=== PATIENT | male | born 1945 | race Caucasian/White ===

== ENCOUNTER 2018-01-17 10:56 | Inpatient (IN) | payer MEDICARE, OTHER ==
--- NOTE | 2018-01-17 11:06 | ER Document Report ---
ED Medical Screen (RME) - General Chief Complaint: Breathing Difficulty Stated Complaint: DIFFICULTY BREATHING,BACK PAIN TRAVEL OUTSIDE OF THE [place] IN LAST 30 DAYS: No - HPI Notes: 01/17/18 11:05 Short of breath acute exacerbation of chronic back pain - Related Data Allergies/Adverse Reactions: No Known Allergies Allergy (Verified 01/17/18 11:03) Past Medical History - Past Medical History Cardiac Medical History: Reports: Hx Hypertension Endocrine Medical History: Reports: Hx Diabetes Mellitus Type 2 Review of Systems - Review of Systems Respiratory: Short of breath Musculoskeletal: Back pain Physical Exam - Vital signs Vitals: Temp Pulse Resp BP Pulse Ox 98.1 F 83 20 184/63 H 94 01/17/18 11:01 01/17/18 11:01 01/17/18 11:01 01/17/18 11:01 01/17/18 11:01 - Respiratory Respiratory status: No respiratory distress Chest status: Nontender Breath sounds: Normal Chest palpation: Normal Course - Vital Signs Vital signs: Temp Pulse Resp BP Pulse Ox 98.1 F 83 20 184/63 H 94 01/17/18 11:01 01/17/18 11:01 01/17/18 11:01 01/17/18 11:01 01/17/18 11:01
[2018-01-17 11:37] LABS: ABSOLUTE BASOPHILS # (AUTO) 0.1 10^3/uL (0.0-0.2); ABSOLUTE EOSINOPHILS # (AUTO) 0.2 10^3/uL (0.0-0.6); ABSOLUTE LYMPHOCYTES (AUTO) 1.6 10^3/uL (0.5-4.7); ABSOLUTE MONOCYTES (AUTO) 0.6 10^3/uL (0.1-1.4); ABSOLUTE NEUT (AUTO) 7.2 10^3/uL (1.7-8.2); BASOPHILS % (AUTO) 0.8 % (0-2); HEMATOCRIT 45.5 % (37.9-51.0); HEMOGLOBIN 15.3 g/dL (13.5-17.0); LYMPHOCYTES % (AUTO) 16.3 % (13-45); MEAN CORPUSCULAR HEMOGLOBIN 29.5 pg (27.0-33.4); MEAN CORPUSCULAR HGB CONC 33.7 g/dL (32.0-36.0); MEAN CORPUSCULAR VOLUME 88 fl (80-97); MONOCYTES % (AUTO) 6.5 % (3-13); PLATELET COUNT 236 10^3/uL (150-450); RED BLOOD COUNT 5.19 10^6/uL (4.35-5.55); RED CELL DISTRIBUTION WIDTH 14.1 % (11.5-14.0); SEGMENTED NEUTROPHILS % (AUTO) 74.4 % (42-78); TOTAL CELLS COUNTED % (AUTO) 100 %; WHITE BLOOD COUNT 9.6 10^3/uL (4.0-10.5)
[2018-01-17 11:59] LABS: ALANINE AMINOTRANSFERASE 64 U/L (21-72); ALBUMIN 3.5 g/dL (3.5-5.0); ALKALINE PHOSPHATASE 66 U/L (38-126); ANION GAP 6 (5-19); ASPARTATE AMINO TRANSFERASE 35 U/L (17-59); BILIRUBIN,DIRECT 0.6 mg/dL (0.0-0.4); BILIRUBIN,TOTAL 0.8 mg/dL (0.2-1.3); BLOOD UREA NITROGEN 19 mg/dL (7-20); CALCIUM 8.8 mg/dL (8.4-10.2); CARBON DIOXIDE 28 mmol/L (22-30); CHLORIDE 105 mmol/L (98-107); CREATINE KINASE 95 U/L (55-170); GLUCOSE 120 mg/dL (75-110); POTASSIUM 4.7 mmol/L (3.6-5.0); SODIUM 139.3 mmol/L (137-145); TOTAL PROTEIN 6.6 g/dL (6.3-8.2)
--- NOTE | 2018-01-17 12:06 | RADIOLOGY REPORT (SQ) ---
EXAM DESCRIPTION: CHEST 2 VIEWS COMPLETED DATE/TIME: 01/17/2018 11:43 am REASON FOR STUDY: sob COMPARISON: Two-view chest 07/18/2015 EXAM PARAMETERS: NUMBER OF VIEWS: two views TECHNIQUE: Digital Frontal and Lateral radiographic views of the chest acquired. RADIATION DOSE: NA LIMITATIONS: none FINDINGS: LUNGS AND PLEURA: Trace bilateral pleural effusions in the posterior costophrenic sulci. Few Ayo lines at both bases likely indicating mild interstitial edema. No dense consolidation worrisome for pneumonia. No pneumothorax. MEDIASTINUM AND HILAR STRUCTURES: No masses or contour abnormalities. HEART AND VASCULAR STRUCTURES: No cardiomegaly BONES: No acute findings. HARDWARE: Lap band prosthesis at the GE junction OTHER: No other significant finding. IMPRESSION: Trace bilateral pleural effusions Mild interstitial edema TECHNICAL DOCUMENTATION: JOB ID: [id number] [employer]- All Rights Reserved Reading location - IP/workstation name: [email or web address]
[2018-01-17 12:10] LABS: CREATINE KINASE MB 4.16 ng/mL (<4.55)
[2018-01-17 12:15] LABS: TROPONIN I 0.184 ng/mL
[2018-01-17] MEDS ORDERED: ASPIRIN 325 MG TABLET PO ONE (12:18)
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
[2018-01-17] MEDS ORDERED: FUROSEMIDE INJ/PF 40 MG/4 ML SDV IV ONE (12:30)
[2018-01-17] MEDS ORDERED: OXYCODONE-ACETAMINOPHEN 5-325 MG TABLET PO PRN (16:58)
[2018-01-17] MEDS ORDERED: ALBUTEROL SULFATE 0.083% NEB 2.5 MG/3 ML AMPUL NEB PRN (16:58)
[2018-01-17] MEDS ORDERED: ONDANSETRON HCL INJ/PF 4 MG/2 ML SDV IV PRN (16:58)
[2018-01-17] MEDS ORDERED: ACETAMINOPHEN 325 MG TABLET PO PRN (16:58)
[2018-01-17] MEDS ORDERED: NITROGLYCERIN 0.4 MG/TAB 25 TAB/BOTTLE SL PRN (17:08)
[2018-01-17] MEDS ORDERED: NITROGLYCERIN 2% OINTMENT 1 GM PACKET TP SCH (18:00)
--- NOTE | 2018-01-17 18:07 | EKG REPORT ---
SEVERITY:- ABNORMAL ECG - SINUS RHYTHM LVH WITH SECONDARY REPOLARIZATION ABNORMALITY PROBABLE INFERIOR INFARCT, OLD BORDERLINE PROLONGED QT INTERVAL : Confirmed by: Shagufta Limon MD 17-Jan-2018 18:06:25
--- NOTE | 2018-01-17 18:07 | EKG REPORT ---
SEVERITY:- ABNORMAL ECG - SINUS RHYTHM LAD, LAFB ABNORMAL T, CONSIDER ISCHEMIA, LATERAL LEADS : Confirmed by: Shagufta Limon MD 17-Jan-2018 18:07:02
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
[2018-01-17] MEDS ORDERED: METOPROLOL TARTRATE 100 MG TABLET PO SCH (22:00)
[2018-01-17] MEDS: INSULIN GLARGINE,HUM.REC.ANLOG 300 UNIT/3 ML INSULN.PEN SUBCUT SCH (22:23)
[2018-01-17] MEDS: FUROSEMIDE INJ/PF 40 MG/4 ML SDV IV SCH (22:25)
[2018-01-17] MEDS: METOPROLOL TARTRATE 100 MG TABLET PO SCH (22:25)
[2018-01-17] MEDS: ENOXAPARIN SODIUM INJ 100 MG/1 ML DISP.SYRIN SUBCUT SCH (22:25)
[2018-01-17] MEDS: BUPROPION HCL 75 MG TABLET PO SCH (22:26)
[2018-01-17] MEDS: ATORVASTATIN CALCIUM 20 MG TABLET PO SCH (22:26)
[2018-01-17] MEDS: FAMOTIDINE 20 MG TABLET PO SCH (22:26)
[2018-01-18] MEDS: NITROGLYCERIN 2% OINTMENT 1 GM PACKET TP SCH ×5 (00:32→23:46)
[2018-01-18 00:54] LABS: APPEARANCE,URINE CLEAR; BILIRUBIN,URINE NEGATIVE (NEGATIVE); COLOR,URINE STRAW; KETONES,URINE 25 mg/dL (NEGATIVE); LEUKOCYTE ESTERASE,URINE NEGATIVE (NEGATIVE); NITRITE,URINE NEGATIVE (NEGATIVE); PROTEIN,URINE NEGATIVE (NEGATIVE); UROBILINOGEN,URINE NEGATIVE mg/dL (<2.0)
[2018-01-18 01:08] LABS: GLUCOSE, URINE >=1000 mg/dL (NEGATIVE)
[2018-01-18 01:09] LABS: URINE SPECIFIC GRAVITY 1.016
[2018-01-18 05:25] LABS: HEMATOCRIT 43.6 % (37.9-51.0); HEMOGLOBIN 14.6 g/dL (13.5-17.0); MEAN CORPUSCULAR HGB CONC 33.4 g/dL (32.0-36.0); MEAN CORPUSCULAR VOLUME 87 fl (80-97); PLATELET COUNT 210 10^3/uL (150-450); RED BLOOD COUNT 5.03 10^6/uL (4.35-5.55); RED CELL DISTRIBUTION WIDTH 14.1 % (11.5-14.0); WHITE BLOOD COUNT 9.5 10^3/uL (4.0-10.5)
[2018-01-18 06:00] LABS: ANION GAP 8 (5-19); BLOOD UREA NITROGEN 21 mg/dL (7-20); CALCIUM 8.8 mg/dL (8.4-10.2); CARBON DIOXIDE 29 mmol/L (22-30); CHLORIDE 104 mmol/L (98-107); GLUCOSE 87 mg/dL (75-110); POTASSIUM 4.4 mmol/L (3.6-5.0); SODIUM 140.5 mmol/L (137-145)
[2018-01-18 06:01] LABS: CHOLESTEROL 142.57 mg/dL (0-200); TRIGLYCERIDES 82 mg/dL (<150)
[2018-01-18 06:11] LABS: DIRECT LDL 80 mg/dL (<100)
--- NOTE | 2018-01-18 08:15 | EKG REPORT ---
SEVERITY:- ABNORMAL ECG - SINUS RHYTHM PROBABLE INFERIOR INFARCT, OLD MINIMAL ST ELEVATION, ANTERIOR LEADS : Confirmed by: Shagufta Limon MD 18-Jan-2018 08:14:24
[2018-01-18] MEDS ORDERED: DEXTROSE 50%-WATER SYRINGE 25 GM/50 ML DOSE IV PRN (09:24)
[2018-01-18] MEDS ORDERED: DEXTROSE 50%-WATER SYRINGE 12.5 GM/25 ML DOSE IV PRN (09:24)
[2018-01-18] MEDS ORDERED: DEXTROSE 40% GEL 15 GM TUBE X 2 PO PRN (09:24)
[2018-01-18] MEDS ORDERED: INSULIN LISPRO 100 UNIT/ML 3 ML VIAL SUBCUT PRN (09:24)
[2018-01-18] MEDS ORDERED: GLUCAGON,HUMAN RECOMB 1 MG INJ IM PRN (09:24)
[2018-01-18] MEDS ORDERED: DEXTROSE 40% GEL 15 GM TUBE PO PRN (09:24)
[2018-01-18] MEDS: BUPROPION HCL 75 MG TABLET PO SCH ×2 (09:53→21:29)
[2018-01-18] MEDS: FAMOTIDINE 20 MG TABLET PO SCH ×2 (09:53→21:31)
[2018-01-18] MEDS: DOXAZOSIN MESYLATE 2 MG TABLET PO SCH (09:54)
[2018-01-18] MEDS: DOCUSATE SODIUM 100 MG CAPSULE PO SCH (09:54)
[2018-01-18] MEDS: ENOXAPARIN SODIUM INJ 100 MG/1 ML DISP.SYRIN SUBCUT SCH ×2 (09:54→21:31)
[2018-01-18] MEDS ORDERED: METRONIDAZOLE TP SCH (10:00)
[2018-01-18] MEDS ORDERED: (PENDING PHARMACY ID) (Empagliflozin [Jardiance] 25 MG) PO SCH (10:00)
[2018-01-18] MEDS: FUROSEMIDE INJ/PF 40 MG/4 ML SDV IV SCH ×2 (10:02→21:31)
[2018-01-18] MEDS: METOPROLOL TARTRATE 100 MG TABLET PO SCH ×2 (10:20→21:30)
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
--- NOTE | 2018-01-18 17:51 | XCELERA REPORT ---
[address] [address] Transthoracic Echocardiogram Report Name: DK WOLFE Age: 72 yrs Gender: Male : 1945 Patient Status: Inpatient Patient Location: [address] [place] [address] Study Date: 01/18/2018 02:23 PM Height: 66 in Weight: 252 lb BSA: 2.2 m2 Procedure: A complete two-dimensional transthoracic echocardiogram was performed (2D, M-mode, spectral and color flow Doppler). The study was technically difficult with many images being suboptimal in quality. Reason For Study: CHF Ordering Physician: BRENTON PENA Performed By: Joy Johnston Interpretation Summary Left ventricular systolic function is low normal. There is mild concentric left ventricular hypertrophy. The left ventricle is grossly normal size. Doppler measurements suggest pseudonormalized left ventricular relaxation, which is associated with grade II/IV or mild to moderate diastolic dysfunction Regional wall motion abnormalities cannot be excluded due to limited visualization. The right ventricle is grossly normal size. The right ventricular systolic function is normal. The right atrium is normal in size The left atrium is mildly dilated. There is a trace amount of mitral regurgitation There is no mitral valve stenosis. There is no aortic valve stenosis There is a mild amount of aortic regurgitation There is a trace or physiologic amount of tricuspid regurgitation Tricuspid regurgitation jet envelope not well defined to measure RV systolic pressure accurately. The aortic root is not well visualized but is probably normal size. The inferior vena cava appeared normal and decreased > 50% with respiration (RAP 5-10 mmHg) Minimal pericardial effusion. MMode/2D Measurements & Calculations RVDd: 3.1 cm LVIDd: 5.0 cm FS: 30.8 % Ao root diam: 3.3 cm IVSd: 1.0 cm LVIDs: 3.5 cm EDV(Teich): 119.0 ml Ao root area: 8.7 cm2 LVPWd: 1.0 cm ESV(Teich): 49.9 ml LA dimension: 4.2 cm EF(Teich): 58.1 % Doppler Measurements & Calculations MV E max markus: MV P1/2t max markus: Ao V2 max: AI max markus: 118.0 cm/sec 118.5 cm/sec 100.4 cm/sec 367.0 cm/sec MV A max markus: MV P1/2t: 78.3 msec Ao max PG: AI max P.3 cm/sec MVA(P1/2t): 2.8 cm2 4.0 mmHg 53.9 mmHg MV E/A: 0.91 MV dec slope: AI dec slope: 252.2 cm/sec2 443.0 cm/sec2 AI P1/2t: MV dec time: 0.27 sec 426.3 msec LV V1 max PG: PA V2 max: TR max markus: AV P1/2t-pr_phl: 3.9 mmHg 70.1 cm/sec 205.0 cm/sec 426.3 msec LV V1 max: PA max P.0 mmHg TR max P.2 cm/sec 16.8 mmHg MV P1/2t-pr_phl: 78.3 msec Left Ventricle The left ventricle is grossly normal size. There is mild concentric left ventricular hypertrophy. Left ventricular systolic function is low normal. Doppler measurements suggest pseudonormalized left ventricular relaxation, which is associated with grade II/IV or mild to moderate diastolic dysfunction. Regional wall motion abnormalities cannot be excluded due to limited visualization. Right Ventricle The right ventricle is grossly normal size. There is normal right ventricular wall thickness. The right ventricular systolic function is normal. Atria The right atrium is normal in size. The left atrium is mildly dilated. Interarterial septum not well visualized and not well dopplered. Cannot comment on ASD/PFO presence. Mitral Valve There is mild mitral leaflet calcification. There is mild to moderate mitral annular calcification. There is no mitral valve stenosis. There is a trace amount of mitral regurgitation. Aortic Valve The aortic valve is not well visualized secondary to technical limitations. There is no aortic valve stenosis. There is a mild amount of aortic regurgitation. Tricuspid Valve The tricuspid valve is not well visualized secondary to technical limitations. There is no tricuspid stenosis. There is a trace or physiologic amount of tricuspid regurgitation. Tricuspid regurgitation jet envelope not well defined to measure RV systolic pressure accurately. Pulmonic Valve The pulmonic valve is not well visualized. Great Vessels The aortic root is not well visualized but is probably normal size. The inferior vena cava appeared normal and decreased > 50% with respiration (RAP 5-10 mmHg). Effusions Minimal pericardial effusion. : BRENTON PENA > Karl Lai
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
[2018-01-18] MEDS: ATORVASTATIN CALCIUM 20 MG TABLET PO SCH (21:29)
[2018-01-18] MEDS: INSULIN GLARGINE,HUM.REC.ANLOG 300 UNIT/3 ML INSULN.PEN SUBCUT SCH (21:32)
[2018-01-19 04:52] LABS: HEMATOCRIT 43.1 % (37.9-51.0); HEMOGLOBIN 14.8 g/dL (13.5-17.0); MEAN CORPUSCULAR HEMOGLOBIN 29.5 pg (27.0-33.4); MEAN CORPUSCULAR HGB CONC 34.2 g/dL (32.0-36.0); MEAN CORPUSCULAR VOLUME 86 fl (80-97); PLATELET COUNT 232 10^3/uL (150-450); WHITE BLOOD COUNT 9.4 10^3/uL (4.0-10.5)
[2018-01-19] MEDS: NITROGLYCERIN 2% OINTMENT 1 GM PACKET TP SCH ×4 (05:37→23:41)
[2018-01-19] MEDS: DOCUSATE SODIUM 100 MG CAPSULE PO SCH (11:28)
[2018-01-19] MEDS: FAMOTIDINE 20 MG TABLET PO SCH ×2 (11:28→21:38)
[2018-01-19] MEDS: DOXAZOSIN MESYLATE 2 MG TABLET PO SCH (11:29)
[2018-01-19] MEDS: FUROSEMIDE INJ/PF 40 MG/4 ML SDV IV SCH (11:29)
[2018-01-19] MEDS: BUPROPION HCL 75 MG TABLET PO SCH ×2 (11:29→21:39)
[2018-01-19] MEDS: METOPROLOL TARTRATE 100 MG TABLET PO SCH (11:30)
[2018-01-19] MEDS: ENOXAPARIN SODIUM INJ 100 MG/1 ML DISP.SYRIN SUBCUT SCH (11:30)
[2018-01-19] MEDS ORDERED: REGADENOSON INJ 0.4 MG/5 ML DISP.SYRIN IV ONE (11:43)
--- NOTE | 2018-01-19 12:06 | DRAGON STRESS TEST REPORT ---
INTRAVENOUS LEXISCAN CARDIOLITE STRESS TEST USING SINGLE PHOTON EMMISION COMPUTERIZED TOMOGRAPHIC. DATE OF PROCEDURE: January 19, 2018, INDICATION : Abnormal troponin, CHF CARDIAC RISK FACTORS: Diabetes, hypertension, dyslipidemia RESTING EKG: Sinus rhythm, LVH with secondary ST-T wave changes, left axis deviation STRESS EKG: No significant ST segment changes noted with LexiScan bolus REASON FOR TERMINATION: Protocol. PROCEDURE REPORT: Baseline heart rate 68 beats per minute with blood pressure of 138/50. Patient had no significant complaints. Patient was bolused with Lexiscan 0.4 mg intravenously followed by saline bolus. Heart rate at 2 minutes post bolus 75 with a blood pressure of 140/54. 3 minutes post bolus heart rate 76 with blood pressure of 149/58. No significant EKG changes were noted. Patient had no significant complaints during the procedure or postprocedure. CONCLUSIONS: Normal EKG and hemodynamic response to IV LexiScan. NUCLEAR DATA: At rest the patient was given 15.01 millicuries of technetium 99 sestamibi injected intravenously. As per protocol rest gated SPECT images were obtained. On day of stress test, the patient was given intravenous LexiScan at a dose of 0.4 mg in 5 mL intravenously, followed by flush with normal saline. Subsequently the stress dose of 40.5 millicuries of technetium 99 sestamibi was injected intravenously. As per protocol stress gated images were obtained. NUCLEAR INTERPRETATION: Both raw and processed data were used for interpretation. Visual, qualitative, computer-generated quantitative data was used. There was good myocardial uptake of technetium compound. Motion artifact and soft tissue attenuations were noted. Increased visceral uptake was noted. Predominantly moderate fixed defect noted in the basal and mid inferior wall with minimal area of surrounding transient perfusion defect, consistent with predominantly scar with small area of surrounding ischemia involving the mid and basal inferior wall. EKG gated imaging showed LV EF at 38 %, rest and stress gated EF similar visually. Inferior wall hypokinesia noted. T. I D. ratio was 1.16. Lung heart ratio noted to be within normal limits 0.38. No significant extracardiac and abnormal radiotracer activities were noted. RV free wall uptake was noted to be Increased. IMPRESSION: Also refer to comments under nuclear interpretation. Also test results needs to be interpreted in the context of pretest probability. 1. Predominantly moderate fixed defect noted in the basal and mid inferior wall with minimal area of surrounding transient perfusion defect, consistent with predominantly scar with small area of surrounding ischemia involving the mid and basal inferior wall. 2. RV free wall uptake seems borderline increased. Possible borderline to mild RVH. 3. EKG gated imaging shows left ventricular ejection fraction of approx. 38 %. Inferior wall hypokinesia noted. 4. Clinical correlation requested as worse disease and or balanced ischemia could be missed. In approximately 10% of the cases Lexiscan may not cause adequate vasodilatory stress. RECOMMENDATIONS: Aggressive risk factor modification and medical management. Further evaluation may be needed if continued symptoms or other high risk indicators are noted on clinical evaluation. Close cardiology follow-up is also recommended. Clinical correlation with echocardiogram derived ejection fraction. Inability to exercise by itself can lead to increased cardiovascular event risks. Consider cardiology consultation and or follow-up if clinically indicated. I am available for cardiology evaluation and consultation if requested by the shear operator helper, unless patient already has a folder gluer operator. Dr. Fabien Lai. MRCP Board certified in cardiology and sleep medicine. Board certified in nuclear cardiology, adult echocardiography. GERMÁN
[2018-01-19] MEDS ORDERED: ONDANSETRON HCL INJ/PF 4 MG/2 ML SDV IV PRN (14:30)
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
--- NOTE | 2018-01-19 19:40 | PDOC PROGRESS REPORT ---
Subjective Progress Note for:: 01/19/18 Subjective:: Patient seems to be doing better with gradual improvement. Pt is denying any chest arm or neck discomfort. Patient denying any PND, orthopnea. Patient denied any sustained palpitations, dizziness, syncope, near syncope. Patient denying any fever chills. Patient denying any other significant discomfort. Patient is maintaining sinus rhythm. Review of systems: Rest review of systems negative. Medications: Medications have been reviewed. Reason For Visit: CHF DECOMPENSATION,ACUTE NSTEMI Physical Exam Vital Signs: Temp Pulse Resp BP Pulse Ox 98.1 F 63 18 117/47 L 95 01/19/18 15:05 01/19/18 15:05 01/19/18 15:05 01/19/18 15:05 01/19/18 15:05 Intake & Output 01/18/18 01/19/18 01/20/18 06:59 06:59 06:59 Intake Total 300 1349 725 Output Total 2150 2050 Balance -1850 -701 725 Weight 112.8 kg 111.2 kg Exam: GENERAL: well-nourished and in no acute distress. Alert and oriented x3 HEAD: Atraumatic, normocephalic. EYES: Pupils equal round and reactive to light, extraocular movements intact, sclera anicteric, conjunctiva are normal. ENT: TMs normal, nares patent, oropharynx clear without exudates. Moist mucous membranes. No oral ulcerations or bleeding gums noted NECK: supple without lymphadenopathy. Trachea is central. No cervical or axillary lymphadenopathy noted. Carotids are 2+, JVD WNL LUNGS: Respiration seems nonlabored, no significant accessory muscle action noted. Breath sounds clear to auscultation bilaterally and equal noted. No wheezes rales or rhonchi noted. No significant dullness noted on percussion. CHEST: Palpation of the chest wall shows no significant chest wall tenderness. HEART: Proctor INFANT NANNY, No PSH, 1/6 AZRA aortic area, 1/6 hallman systolic murmur mitral area, no rubs, no gallops. ABDOMEN: Soft, no significant tenderness appreciated, normoactive bowel sounds. No guarding, no rebound. No rigidity noted . No masses appreciated. EXTREMITIES: Pedal pulses are 1-2+, no calf tenderness noted. No clubbing or cyanosis. 1-2+ pedal edema noted NEUROLOGICAL: Focused neurological exam showed no significant neurologic deficit. Normal speech, no focal weakness appreciated. PSYCH: Normal mood, normal affect. Judgment and insight within normal limits. SKIN: No significant ecchymosis, skin is noted to be warm. MUSCULOSKELETAL EXAM: No significant acute joint swelling noted. Results Laboratory Results: 01/19/18 04:34 01/18/18 04:59 01/19/18 04:34 WBC 9.4 RBC 5.00 Hgb 14.8 Hct 43.1 MCV 86 MCH 29.5 MCHC 34.2 RDW 14.0 Plt Count 232 01/17/18 01/18/18 01/18/18 22:03 04:59 16:20 Troponin I 0.164 0.199 0.127 EKG Comments: Telemetry shows sinus rhythm without any sustained tachycardia or bradycardia Impressions: Chest X-Ray 01/17/18 11:06 IMPRESSION: Trace bilateral pleural effusions Mild interstitial edema Assessment & Plan - Diagnosis (1) CHF (congestive heart failure) Qualifiers: Heart failure type: unspecified Heart failure chronicity: acute Qualified Code(s): I50.9 - Heart failure, unspecified Is this a current diagnosis for this admission?: Yes (2) Chest pain Qualifiers: Chest pain type: unspecified Qualified Code(s): R07.9 - Chest pain, unspecified Is this a current diagnosis for this admission?: Yes (3) Acute non-ST elevation myocardial infarction (NSTEMI) Is this a current diagnosis for this admission?: Yes (4) Troponin I above reference range Is this a current diagnosis for this admission?: Yes (5) Diabetes mellitus Qualifiers: Diabetes mellitus type: type 2 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 Today patient had nuclear stress test. Which showed inferior wall scar with small area of surrounding ischemia. Patient however not having any chest pain. Is clinically significantly improved. EKG gated imaging did show depressed LVEF. At this point recommend that if he does find on ambulation and has no significant arrhythmias, will recommend continuing medical management. Patient encouraged to seek follow-up appointment quickly on discharge with his primary care pulley mortiser operator. Patient was recommended that if he has recurrent chest pain, recurrent CHF or any significant arrhythmias then heart catheterization would be recommended otherwise recommend medical management. Patient encouraged in compliance with CPAP therapy. Patient also advised on stress reduction as he claims significant stress currently engulfing his life. Congestive heart failure: Acute on chronic based on diastolic dysfunction. Most likely related to volume overload in setting of diastolic dysfunction. Cannot rule out ischemia or arrhythmia induced CHF. Continue diuretic therapy. Patient is significantly improved since diuresis. Chest pain: Patient did complain of some chest tightness on admission. To be evaluated further with a nuclear stress test. 2D echo was reviewed. Non-STEMI: Possibly ACS versus CHF related and supply demand related. Best to treat him as ACS due to patient's age and risk factors.. Troponin I above reference range in the non-STEMI range. Continue treatment as ACS. Diabetes: Recommend good treatment. Avoid any hypo-or hyperglycemia. Obesity: Patient will benefit from gradual weight loss. Sleep apnea syndrome: Patient gives a history of it. Patient will benefit from regular CPAP use and being compliant with it. - Time Time with patient: Greater than 35 minutes - CODE STATUS was discussed, patient remains full code. Surrogate decision-maker unchanged. Multiple medical problems were addressed. More than 50% of the time spent coordinating care, discussing management plans with involved caregivers. Management plans discussed with involved personnels. Medical decision making was of moderate to high complexity, patient's has multiple comorbidities. Significant time spent discussing results of 2D echo, nuclear stress test, prognosis etc. Patient questions were answered. Medications reviewed and adjusted accordingly: Yes
[2018-01-19] MEDS: METOPROLOL TARTRATE 50 MG TABLET PO SCH (21:39)
[2018-01-19] MEDS: ATORVASTATIN CALCIUM 20 MG TABLET PO SCH (21:39)
[2018-01-19] MEDS ORDERED: INSULIN GLARGINE,HUM.REC.ANLOG 300 UNIT/3 ML INSULN.PEN SUBCUT SCH (22:00)
[2018-01-20 04:44] LABS: ANION GAP 6 (5-19); BLOOD UREA NITROGEN 27 mg/dL (7-20); CALCIUM 8.4 mg/dL (8.4-10.2); CARBON DIOXIDE 30 mmol/L (22-30); CHLORIDE 102 mmol/L (98-107); GLUCOSE 102 mg/dL (75-110); POTASSIUM 4.1 mmol/L (3.6-5.0); SODIUM 138.3 mmol/L (137-145)
[2018-01-20] MEDS: NITROGLYCERIN 2% OINTMENT 1 GM PACKET TP SCH (05:36)
[2018-01-20] MEDS: BUPROPION HCL 75 MG TABLET PO SCH (09:10)
[2018-01-20] MEDS: DOXAZOSIN MESYLATE 2 MG TABLET PO SCH (09:10)
[2018-01-20] MEDS: FAMOTIDINE 20 MG TABLET PO SCH (09:10)
[2018-01-20] MEDS: DOCUSATE SODIUM 100 MG CAPSULE PO SCH (09:10)
[2018-01-20] MEDS: METOPROLOL TARTRATE 50 MG TABLET PO SCH (09:10)
[2018-01-20] MEDS ORDERED: ENOXAPARIN SODIUM INJ 100 MG/1 ML DISP.SYRIN SUBCUT SCH (10:00)
[2018-01-20] MEDS ORDERED: FUROSEMIDE INJ/PF 40 MG/4 ML SDV IV SCH (10:00)
[2018-01-20] MEDS ORDERED: ENALAPRIL MALEATE 2.5 MG TABLET PO SCH (10:00)
[2018-01-20 10:11] VITALS: BP 127/49
--- NOTE | 2018-01-20 11:33 | PDOC PROGRESS REPORT ---
Subjective Progress Note for:: 01/20/18 Subjective:: Patient seems to be doing better. Patient has ambulated in the hallway without any difficulty. Pt is denying any chest arm or neck discomfort. Patient denying any PND, orthopnea. Patient denied any sustained palpitations, dizziness, syncope, near syncope. Patient denying any fever chills. Patient denying any other significant discomfort. Nuclear stress test results were reviewed with the patient. Patient has been advised to pursue heart catheterization as an outpatient especially if he has worsening symptoms. This is in view of depressed LVEF being noted low Patient is maintaining sinus rhythm. Review of systems: Rest review of systems negative. Medications: Medications have been reviewed. Reason For Visit: CHF DECOMPENSATION,ACUTE NSTEMI Physical Exam Vital Signs: Temp Pulse Resp BP Pulse Ox 97.6 F 62 16 127/49 H 100 01/20/18 10:10 01/20/18 10:10 01/20/18 10:10 01/20/18 10:10 01/20/18 10:10 Intake & Output 01/19/18 01/20/18 01/21/18 06:59 06:59 06:59 Intake Total 1349 725 Output Total 2050 875 Balance -701 -150 Weight 111.2 kg 110.5 kg Exam: GENERAL: well-nourished and in no acute distress. Alert and oriented x3 HEAD: Atraumatic, normocephalic. EYES: Pupils equal round and reactive to light, extraocular movements intact, sclera anicteric, conjunctiva are normal. ENT: TMs normal, nares patent, oropharynx clear without exudates. Moist mucous membranes. No oral ulcerations or bleeding gums noted NECK: supple without lymphadenopathy. Trachea is central. No cervical or axillary lymphadenopathy noted. Carotids are 2+, JVD WNL LUNGS: Respiration seems nonlabored, no significant accessory muscle action noted. Breath sounds clear to auscultation bilaterally and equal noted. No wheezes rales or rhonchi noted. No significant dullness noted on percussion. CHEST: Palpation of the chest wall shows no significant chest wall tenderness. 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 ABDOMEN: Soft, no significant tenderness appreciated, normoactive bowel sounds. No guarding, no rebound. No rigidity noted . No masses appreciated. EXTREMITIES: Pedal pulses are 1-2+, no calf tenderness noted. No clubbing or cyanosis. 1+ pedal edema noted NEUROLOGICAL: Focused neurological exam showed no significant neurologic deficit. Normal speech, no focal weakness appreciated. PSYCH: Normal mood, normal affect. Judgment and insight within normal limits. SKIN: No significant ecchymosis, skin is noted to be warm. MUSCULOSKELETAL EXAM: No significant acute joint swelling noted. Results Laboratory Results: 01/19/18 04:34 01/20/18 03:42 01/20/18 03:42 Sodium 138.3 Potassium 4.1 Chloride 102 Carbon Dioxide 30 Anion Gap 6 BUN 27 H Creatinine 0.97 Est GFR ( Amer) > 60 Est GFR (Non-Af Amer) > 60 Glucose 102 Calcium 8.4 01/17/18 01/18/18 01/18/18 22:03 04:59 16:20 Troponin I 0.164 0.199 0.127 NT-Pro-B Natriuret Pep 01/20/18 03:42 Troponin I NT-Pro-B Natriuret Pep 1470 H EKG Comments: Shows sinus rhythm without any sustained tachycardia or bradycardia Impressions: Chest X-Ray 01/17/18 11:06 IMPRESSION: Trace bilateral pleural effusions Mild interstitial edema Assessment & Plan - Diagnosis (1) CHF (congestive heart failure) Qualifiers: Heart failure type: unspecified Heart failure chronicity: acute Qualified Code(s): I50.9 - Heart failure, unspecified Is this a current diagnosis for this admission?: Yes (2) Chest pain Qualifiers: Chest pain type: unspecified Qualified Code(s): R07.9 - Chest pain, unspecified Is this a current diagnosis for this admission?: Yes (3) Acute non-ST elevation myocardial infarction (NSTEMI) Is this a current diagnosis for this admission?: Yes (4) Troponin I above reference range Is this a current diagnosis for this admission?: Yes (5) Diabetes mellitus Qualifiers: Diabetes mellitus type: type 2 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 Reviewed nuclear stress test results. Which showed inferior wall scar with small area of surrounding ischemia. Patient however not having any chest pain. Patient seems clinically significantly improved since admission and he considered himself ready for discharge. At this point recommend continuing medical management. Patient encouraged to seek follow-up appointment quickly on discharge with his primary care sales attendant. Patient was recommended that if he has recurrent chest pain , recurrent CHF or any significant arrhythmias then heart catheterization would be recommended otherwise recommend medical management. Patient encouraged in compliance with CPAP therapy. Patient also advised on stress reduction as he claims significant stress currently engulfing his life. Congestive heart failure: Acute on chronic based on diastolic dysfunction. Most likely related to volume overload in setting of diastolic dysfunction. Cannot rule out ischemia or arrhythmia induced CHF. Continue diuretic therapy. Patient is significantly improved since diuresis. Chest pain: Patient did complain of some chest tightness on admission. However there has been no recurrences. There has been no recurrence even on brisk ambulation. Nuclear stress test results reviewed. 2D echo was reviewed. Non-STEMI: Possibly ACS versus CHF related and supply demand related. Best to treat him as ACS, patient has done well with medical management continue with it. Troponin I above reference range in the non-STEMI range. Patient has done well with medical management. Continue with it. Diabetes: Recommend good treatment. Avoid any hypo-or hyperglycemia. Obesity: Patient will benefit from gradual weight loss. Sleep apnea syndrome: Patient gives a history of it. Patient will benefit from regular CPAP use and being compliant with it. This also discussed with hospitalist and patient is being expected to be discharged. - Time Time with patient: Greater than 35 minutes - CODE STATUS was discussed, patient remains full code. Surrogate decision-maker unchanged. Multiple medical problems were addressed. More than 50% of the time spent coordinating care, discussing management plans with involved caregivers. Management plans discussed with involved personnels. Medical decision making was of moderate to high complexity, patient's has multiple comorbidities. Medications reviewed and adjusted accordingly: Yes
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
== END 2018-01-20 11:00 | disposition home or self-care (01) | DRG 282 ==
LOC: ER 10:56 → EH 17:05 → 3W 18:48
PROVIDERS: ADMIT Emergency Medicine; ATTEND Emergency Medicine
PROC: 3E0234Z Introduction of Serum, Toxoid and Vaccine into Muscle, Percutaneous Approach (ICD-10-PCS; principal; 2018-01-20)
DX: I11.0 Hypertensive heart disease with heart failure (principal); I21.4 Non-ST elevation (NSTEMI) myocardial infarction; I50.33 Acute on chronic diastolic (congestive) heart failure; E11.8 Type 2 diabetes mellitus with unspecified complications; E78.5 Hyperlipidemia, unspecified; G47.33 Obstructive sleep apnea (adult) (pediatric); Z87.891 Personal history of nicotine dependence; Z79.82 Long term (current) use of aspirin; Z79.4 Long term (current) use of insulin; Z79.899 Other long term (current) drug therapy; Z23 Encounter for immunization
CPT/HCPCS: 36415; 71046; 78452; 80048; 80053; 80061; 81001; 82550; 82553; 82962; 83735; 83880; 84484; 85025; 85027; 93005; 93010; 93017; 93306; 96374; 99285; A9500; J1650; J1815; J1940; J2785; J3490; Q9969

== ENCOUNTER 2018-07-10 00:34 | Inpatient (IN) | payer MEDICARE, OTHER ==
[2018-07-10] MEDS ORDERED: NITROGLYCERIN/D5W 50 MG/250 ML RTUINJ IV PRN (00:45)
--- NOTE | 2018-07-10 00:51 | ER Document Report ---
ED General - General Chief Complaint: Breathing Difficulty Stated Complaint: SHORTNESS OF BREATH Time Seen by Provider: 07/10/18 00:43 Primary Care Provider: RAJENDRA ISIDRO MD [Primary Care Provider] - Follow up as needed TRAVEL OUTSIDE OF THE [place] IN LAST 30 DAYS: No - Related Data Allergies/Adverse Reactions: No Known Allergies Allergy (Verified 01/17/18 11:03) Past Medical History - Social History Smoking Status: Never Smoker Frequency of alcohol use: None Drug Abuse: None Family History: CAD - Positive but not premature Patient has suicidal ideation: No Patient has homicidal ideation: No - Past Medical History Cardiac Medical History: Reports: Hx Hypertension Endocrine Medical History: Reports: Hx Diabetes Mellitus Type 2 Renal/ Medical History: Denies: Hx Peritoneal Dialysis Psychiatric Medical History: Denies: Hx Depression Past Surgical History: Reports: Hx Cardiac Catheterization Physical Exam - Vital signs Vitals: Pulse Resp BP Pulse Ox 120 H 36 H 231/110 H 78 L 07/10/18 00:34 07/10/18 00:34 07/10/18 00:34 07/10/18 00:34 Course - Re-evaluation Re-evalutation: 07/10/18 00:48 When patient arrived he was in severe distress with rales throughout his entire lung sullivan bilaterally. Per sow manager report is very hypertensive when he arrived and they placed Nitropaste on him within his blood pressure went down to 70 systolic. They then gave him epinephrine and this brought his his pressure back up. Upon arrival here his blood pressure was 236 systolic. We did switch from the BiPAP. He is improving a lot with her BiPAP as he was only 80% on their CPAP machine. I still started on nitro drip as it is odd that the patient's pressure dropped that much with Nitropaste alone. Patient denies any chest pain and therefore I think inferior PA is less likely. I placed him on nitro drip. Start with 50 mcg. His blood pressure dropped to 180 systolic. I will titrate him down to 20 mcg now and his current blood pressure is 166 systolic. We will continue to monitor his pressure very closely and adjust the nitro drip as needed. Clinically patient looks much improved his work of breathing has decreased significantly. 07/10/18 01:13 On reevaluation patient looks much improved. Tachypnea is resolved. I titrated his nitro down to 10 mics per minute. Current blood pressure is 139 systolically. I am now titrating down his FiO2. He is down to 60%. 07/10/18 02:01 Patient continues to feel much improved. He looks well. I feel he is stable for admission. I did discuss case with Dr. Santos who agrees to evaluate the patient for admission. His BiPAP is now down to 50% FiO2. His nitro drip is at 10. Blood pressure stabilized. Continues to deny any chest pain. Dictation of this chart was performed using voice recognition software; therefore, there may be some unintended grammatical errors. 07/10/18 02:03 - Vital Signs Vital signs: Temp Pulse Resp BP Pulse Ox 120 H 24 H 145/67 H 100 07/10/18 00:34 07/10/18 01:00 07/10/18 00:56 07/10/18 01:00 - Laboratory Result Diagrams: 07/10/18 00:35 07/10/18 00:35 Laboratory results interpreted by me: 07/10/18 07/10/18 07/10/18 00:35 00:35 00:35 WBC 12.0 H RBC 6.20 H Hgb 17.8 H Hct 54.4 H RDW 15.0 H BUN 22 H Glucose 323 H AST 67 H NT-Pro-B Natriuret Pep 1690 H - EKG Interpretation by Me Additional EKG results interpreted by me: 07/10/18 00:47 EKG is reviewed and interpreted by me. EKG shows sinus tachycardia with rate of 116 bpm. Patient has some possible ST segment elevation in lead III however it fluctuates and I think likely related to artifact. I do not see any reciprocal ST segment depression except for in lead V6 which is old and unchanged comparison to previous EKG from January 17, 2018. He does have T wave inversions in leads I and aVL which again are unchanged comparison to his previous EKG. RI interval, QRS duration, QT intervals are within normal range. Critical Care Note - Critical Care Note Total time excluding time spent on procedures (mins): 45 Comments: Critical care time for this patient not including time spent in procedures approximately 45 minutes due to frequent re-evaluations, management of severe respiratory distress, management of hypertensive urgency, management of BiPAP and nitro drip. Discharge - Discharge Clinical Impression: CHF (congestive heart failure) Qualifiers: Heart failure type: unspecified Heart failure chronicity: acute on chronic Qualified Code(s): I50.9 - Heart failure, unspecified Pulmonary edema Qualifiers: Chronicity: acute Qualified Code(s): J81.0 - Acute pulmonary edema Condition: Stable Disposition: ADMITTED INPATIENT Admitting Provider: Hospitalist Unit Admitted: IMCU Referrals: RAJENDRA ISIDRO MD [Primary Care Provider] - Follow up as needed
[2018-07-10 00:56] LABS: ABSOLUTE BASOPHILS # (AUTO) 0.1 10^3/uL (0.0-0.2); ABSOLUTE EOSINOPHILS # (AUTO) 0.3 10^3/uL (0.0-0.6); ABSOLUTE LYMPHOCYTES (AUTO) 3.5 10^3/uL (0.5-4.7); ABSOLUTE NEUT (AUTO) 7.2 10^3/uL (1.7-8.2); BASOPHILS % (AUTO) 0.5 % (0-2); EOSINOPHILS % (AUTO) 2.2 % (0-6); HEMATOCRIT 54.4 % (37.9-51.0); HEMOGLOBIN 17.8 g/dL (13.5-17.0); MEAN CORPUSCULAR HEMOGLOBIN 28.7 pg (27.0-33.4); MEAN CORPUSCULAR HGB CONC 32.7 g/dL (32.0-36.0); MEAN CORPUSCULAR VOLUME 88 fl (80-97); MONOCYTES % (AUTO) 8.4 % (3-13); PLATELET COUNT 222 10^3/uL (150-450); SEGMENTED NEUTROPHILS % (AUTO) 59.9 % (42-78); TOTAL CELLS COUNTED % (AUTO) 100 %
[2018-07-10 01:02] LABS: ALANINE AMINOTRANSFERASE 59 U/L (21-72); ALBUMIN 4.3 g/dL (3.5-5.0); ALKALINE PHOSPHATASE 97 U/L (38-126); ANION GAP 11 (5-19); ASPARTATE AMINO TRANSFERASE 67 U/L (17-59); BILIRUBIN,DIRECT 0.4 mg/dL (0.0-0.4); BILIRUBIN,TOTAL 0.7 mg/dL (0.2-1.3); BLOOD UREA NITROGEN 22 mg/dL (7-20); CALCIUM 9.2 mg/dL (8.4-10.2); CARBON DIOXIDE 29 mmol/L (22-30); CHLORIDE 101 mmol/L (98-107); GLUCOSE 323 mg/dL (75-110); POTASSIUM 4.1 mmol/L (3.6-5.0); SODIUM 141.1 mmol/L (137-145); TOTAL PROTEIN 7.7 g/dL (6.3-8.2)
[2018-07-10] MEDS ORDERED: FUROSEMIDE INJ/PF 20 MG/2 ML SDV IV ONE (01:12)
[2018-07-10 01:14] LABS: TROPONIN I 0.024 ng/mL
--- NOTE | 2018-07-10 01:21 | RADIOLOGY REPORT (SQ) ---
EXAM DESCRIPTION: XR CHEST 1 VIEW COMPLETED DATE/TME: 07/10/2018 00:44 CLINICAL HISTORY: 73 years, Male, dyspnea COMPARISON: None. NUMBER OF VIEWS: TECHNIQUE: LIMITATIONS: None. FINDINGS: There is increased opacity at the lung bases bilaterally, compatible with pleural effusion and/or atelectasis and/or infiltrate. The heart is top normal in size. There may be cephalization of pulmonary blood flow, raising the possibility of mild pulmonary vascular congestion. The mediastinum is unremarkable. IMPRESSION: Bibasilar pleural effusion and/or atelectasis and/or infiltrate. Possible mild pulmonary vascular congestion. copyright 2010 [employer]- All Rights Reserved
[2018-07-10] MEDS ORDERED: MAG HYDROX/AL HYDROX/SIMETH SUSP 30 ML UDCUP PO PRN (02:01)
[2018-07-10] MEDS ORDERED: ACETAMINOPHEN 325 MG TABLET PO PRN (02:01)
[2018-07-10] MEDS ORDERED: METHOCARBAMOL 500 MG TABLET PO PRN (02:04)
[2018-07-10] MEDS ORDERED: DEXTROSE 50%-WATER 25 GM/50 ML DISP.SYRIN IV PRN ×2 (02:07)
[2018-07-10] MEDS ORDERED: GLUCAGON,HUMAN RECOMB 1 MG INJ IM PRN (02:07)
[2018-07-10] MEDS ORDERED: DEXTROSE 40% GEL 15 GM TUBE PO PRN ×2 (02:07)
[2018-07-10] MEDS ORDERED: ATORVASTATIN CALCIUM 20 MG TABLET PO ONE (02:30)
[2018-07-10] MEDS ORDERED: DOXAZOSIN MESYLATE 2 MG TABLET PO ONE (02:30)
[2018-07-10 02:45] LABS: ANION GAP 5 (5-19); BLOOD UREA NITROGEN 23 mg/dL (7-20); CALCIUM 8.9 mg/dL (8.4-10.2); CARBON DIOXIDE 28 mmol/L (22-30); CHLORIDE 105 mmol/L (98-107); GLUCOSE 374 mg/dL (75-110); POTASSIUM 4.8 mmol/L (3.6-5.0); SODIUM 137.9 mmol/L (137-145)
[2018-07-10] MEDS ORDERED: DOXAZOSIN MESYLATE 2 MG TABLET ONE (02:59)
[2018-07-10] MEDS ORDERED: CLOPIDOGREL BISULFATE 300 MG TABLET ONE (03:57)
[2018-07-10] MEDS ORDERED: ENOXAPARIN SODIUM INJ 120 MG/0.8 ML DISP.SYRIN SUBCUT ONE ×2 (03:57→04:00)
[2018-07-10] MEDS ORDERED: METOPROLOL TARTRATE PF/INJ 5 MG/5 ML SDV IV ONE ×2 (03:57→04:00)
[2018-07-10] MEDS ORDERED: ASPIRIN 325 MG TABLET ONE (03:57)
[2018-07-10] MEDS ORDERED: ASPIRIN 325 MG TABLET, ENT COATED PO ONE (04:00)
[2018-07-10] MEDS ORDERED: CLOPIDOGREL BISULFATE 300 MG TABLET PO ONE (04:00)
--- NOTE | 2018-07-10 05:06 | PDOC H&P ---
History of Present Illness Admission Date/PCP: 07/10/18 02:20 RAJENDRA ISIDRO MD Patient complains of: Shortness of breath History of Present Illness: DK WOLFE is a 73 year old male with past medical history of BPH, hypertension, dyslipidemia, diabetes, morbid obesity, obstructive sleep apnea and moderate diastolic heart failure. Patient presents with abrupt onset of shortness of breath prompting a call to EMS finding him with hypertensive emergency with blood pressure in the upper 200s. And oxygen saturations in the 60s. He was started on CPAP and Nitropaste and brought to the emergency room where he has persistent elevated blood pressure in of 230/115. He is placed on BiPAP and IV nitroglycerin and referred to the hospitalist for admission. Patient denies recent medications or diet. Admits to use of home BiPAP but also refuses to shave his arizmendi. He had a previous episode in the past when he was found to have a hypertensive emergency and diastolic heart failure. Patient currently denies chest pain nausea vomiting or diaphoresis. Past Medical History Cardiac Medical History: Reports: Congestive Heart Failure, Hyperlipidema, Hypertension Pulmonary Medical History: Reports: Sleep Apnea Endocrine Medical History: Reports: Diabetes Mellitus Type 2, Obesity Psychiatric Medical History: Denies: Depression Past Surgical History Past Surgical History: Reports: Cardiac Catheterization Social History Information Source: Patient Smoking Status: Never Smoker Frequency of Alcohol Use: None Hx Recreational Drug Use: No Drugs: None Hx Prescription Drug Abuse: No - Advance Directive Resuscitation Status: Full Code Family History Family History: CAD - Positive but not premature Parental Family History Reviewed: Yes Children Family History Reviewed: Yes Sibling(s) Family History Reviewed.: Yes Medication/Allergy Home Medications: Aspirin [Ecotrin 325 mg EC Tablet] 325 mg PO DAILY 01/17/18 Bupropion HCl [Bupropion HCl Sr] 150 mg PO DAILY 01/17/18 Doxazosin Mesylate [Cardura 2 mg Tablet] 2 mg PO DAILY 01/17/18 Empagliflozin [Jardiance] 25 mg PO DAILY 01/17/18 Insulin Aspart [Novolog Flexpen] 0 unit SUBCUT .SLD SCALE 01/17/18 Methocarbamol [Robaxin 500 mg Tablet] 500 mg PO TIDP PRN 01/17/18 Metronidazole [Metrogel] 1 applic TP BID 01/17/18 Nitroglycerin [Nitrostat 0.4 mg (1/150 Gr) Tabs 25/Bottle] 1 tab SL Q5MP PRN 01/17/18 Atorvastatin Calcium [Lipitor 20 mg Tablet] 20 mg PO QHS #30 tablet 01/20/18 Furosemide [Lasix 40 mg Tablet] 40 mg PO QAM #30 tablet 01/20/18 Isosorbide Mononitrate [Imdur 30 mg Tablet.er] 30 mg PO DAILY #30 tab.er.24h 01/20/18 Metoprolol Tartrate [Lopressor 50 mg Tablet] 50 mg PO Q12 #60 tablet 01/20/18 Allergies/Adverse Reactions: No Known Allergies Allergy (Verified 01/17/18 11:03) Review of Systems Constitutional: ABSENT: chills, fever(s), headache(s), weight gain, weight loss Eyes: ABSENT: visual disturbances Ears: ABSENT: hearing changes Cardiovascular: ABSENT: chest pain, dyspnea on exertion, edema, orthropnea, palpitations Respiratory: ABSENT: cough, hemoptysis Gastrointestinal: ABSENT: abdominal pain, constipation, diarrhea, hematemesis, hematochezia, nausea, vomiting Genitourinary: ABSENT: dysuria, hematuria Musculoskeletal: ABSENT: joint swelling Integumentary: ABSENT: rash, wounds Neurological: ABSENT: abnormal gait, abnormal speech, confusion, dizziness, focal weakness, syncope Psychiatric: ABSENT: anxiety, depression, homidical ideation, suicidal ideation Endocrine: ABSENT: cold intolerance, heat intolerance, polydipsia, polyuria Hematologic/Lymphatic: ABSENT: easy bleeding, easy bruising Physical Exam Vital Signs: Temp Pulse Resp BP Pulse Ox 83 28 H 150/63 H 98 07/10/18 03:12 07/10/18 04:30 07/10/18 04:09 07/10/18 04:39 Intake & Output 07/08/18 07/09/18 07/10/18 11:59 11:59 11:59 Intake Total 108 Output Total 340 Balance -232 Weight 113 kg General appearance: PRESENT: cooperative, morbidly obese, severe distress. ABSENT: disheveled, hard of hearing Head exam: PRESENT: atraumatic, normocephalic Eye exam: PRESENT: conjunctiva pink, EOMI, PERRLA. ABSENT: scleral icterus Ear exam: PRESENT: normal external ear exam Mouth exam: PRESENT: moist, tongue midline Neck exam: PRESENT: full ROM, JVD. ABSENT: carotid bruit, lymphadenopathy, thyromegaly Respiratory exam: PRESENT: accessory muscle use, crackles, prolonged expiratory phas, retraction, symmetrical, tachypnea. ABSENT: rhonchi, stridor Cardiovascular exam: PRESENT: gallop, RRR, +S1, +S2, systolic murmur Pulses: PRESENT: normal dorsalis pedis pul Vascular exam: PRESENT: normal capillary refill GI/Abdominal exam: PRESENT: normal bowel sounds, soft. ABSENT: distended, guarding, mass, organolmegaly, rebound, tenderness Rectal exam: PRESENT: deferred Extremities exam: PRESENT: full ROM. ABSENT: calf tenderness, clubbing, pedal edema Neurological exam: PRESENT: alert, awake, oriented to person, oriented to place, oriented to time, oriented to situation, CN II-XII grossly intact. ABSENT: motor sensory deficit Psychiatric exam: PRESENT: appropriate affect, normal mood. ABSENT: homicidal ideation, suicidal ideation Skin exam: PRESENT: dry, intact, warm. ABSENT: cyanosis, rash Results Laboratory Results: 07/10/18 00:35 07/10/18 02:15 07/10/18 07/10/18 07/10/18 00:35 00:35 02:15 WBC 12.0 H RBC 6.20 H Hgb 17.8 H Hct 54.4 H MCV 88 MCH 28.7 MCHC 32.7 RDW 15.0 H Plt Count 222 Seg Neutrophils % 59.9 Lymphocytes % 29.0 Monocytes % 8.4 Eosinophils % 2.2 Basophils % 0.5 Absolute Neutrophils 7.2 Absolute Lymphocytes 3.5 Absolute Monocytes 1.0 Absolute Eosinophils 0.3 Absolute Basophils 0.1 Sodium 141.1 137.9 Potassium 4.1 4.8 Chloride 101 105 Carbon Dioxide 29 28 Anion Gap 11 5 BUN 22 H 23 H Creatinine 0.85 0.84 Est GFR ( Amer) > 60 > 60 Est GFR (Non-Af Amer) > 60 > 60 Glucose 323 H 374 H Calcium 9.2 8.9 Total Bilirubin 0.7 AST 67 H ALT 59 Alkaline Phosphatase 97 Total Protein 7.7 Albumin 4.3 07/10/18 07/10/18 00:35 02:15 Troponin I 0.024 0.075 NT-Pro-B Natriuret Pep 1690 H Impressions: Chest X-Ray 07/10/18 00:44 IMPRESSION: Bibasilar pleural effusion and/or atelectasis and/or infiltrate. Possible mild pulmonary vascular congestion. copyright 2011 [employer]- All Rights Reserved Assessment and Plan - Diagnosis (1) Hypertensive emergency Is this a current diagnosis for this admission?: Yes Plan: ICU admission, IV nitro, Vasotec, Lasix and hydralazine as needed (2) Diastolic heart failure Qualifiers: Heart failure chronicity: acute on chronic Qualified Code(s): I50.33 - Acute on chronic diastolic (congestive) heart failure Is this a current diagnosis for this admission?: Yes Plan: Optimize blood pressure and volume. Follow-up chemistry and I's and O's (3) Diabetes mellitus Qualifiers: Diabetes mellitus type: type 2 Diabetes mellitus jail insulin use: unspecified jail insulin use status Diabetes mellitus complication status: with unspecified complications Qualified Code(s): E11.8 - Type 2 diabetes mellitus with unspecified complications Is this a current diagnosis for this admission?: Yes Plan: Long and short acting insulin as needed (4) JANET (obstructive sleep apnea) Is this a current diagnosis for this admission?: Yes Plan: BiPAP - Time Time Spent with patient: 35 or more minutes - Inpatient Certification Medical Necessity: Need Close Monitoring Due to Risk of Patient Decompensation
[2018-07-10] MEDS: HEPARIN SOD (PORCINE) 5,000 UNIT/ML 1 ML SYRINGE SUBCUT SCH ×2 (07:03→13:04)
[2018-07-10] MEDS ORDERED: FUROSEMIDE 40 MG TABLET PO SCH (08:00)
[2018-07-10] MEDS: INSULIN LISPRO 100 UNIT/ML 3 ML VIAL SUBCUT SCH ×3 (08:36→17:01)
[2018-07-10] MEDS ORDERED: DOXAZOSIN MESYLATE 2 MG TABLET PO SCH (10:00)
[2018-07-10] MEDS ORDERED: ASPIRIN 325 MG TABLET, ENT COATED PO SCH (10:00)
[2018-07-10] MEDS ORDERED: METOPROLOL TARTRATE 50 MG TABLET PO SCH (10:00)
--- NOTE | 2018-07-10 11:07 | EKG REPORT ---
SEVERITY:- ABNORMAL ECG - SINUS TACHYCARDIA PROBABLE LEFT ATRIAL ABNORMALITY LVH WITH SECONDARY REPOLARIZATION ABNORMALITY INFERIOR INFARCT, ACUTE : Confirmed by: Shagufta Limon MD 10-Jul-2018 11:06:31
--- NOTE | 2018-07-10 11:07 | EKG REPORT ---
SEVERITY:- ABNORMAL ECG - SINUS RHYTHM PROBABLE LVH WITH SECONDARY REPOL ABNRM CONSIDER INFERIOR INFARCT : Confirmed by: Shagufta Limon MD 10-Jul-2018 11:06:25
--- NOTE | 2018-07-10 11:09 | RADIOLOGY REPORT (SQ) ---
EXAM DESCRIPTION: CHEST SINGLE VIEW COMPLETED DATE/TIME: 07/10/2018 10:49 am REASON FOR STUDY: reassess congestion COMPARISON: Chest films 07/10/2018, 01/17/2018 EXAM PARAMETERS: NUMBER OF VIEWS: One view. TECHNIQUE: Single frontal radiographic view of the chest acquired. RADIATION DOSE: NA LIMITATIONS: None. FINDINGS: LUNGS AND PLEURA: Near complete clearing of the pulmonary edema pattern seen on 07/10/2018, 0057 hours chest film. No pneumothorax. Trace left pleural effusion could not be excluded. No dense consolidation worrisom e for pneumonia MEDIASTINUM AND HILAR STRUCTURES: No masses. Contour normal. HEART AND VASCULAR STRUCTURES: Mild cardiomegaly BONES: No acute findings. HARDWARE: None in the chest. OTHER: No other significant finding. IMPRESSION: Near complete clearing of the pulmonary edema pattern seen on 07/10/2018 0057 hours chest film TECHNICAL DOCUMENTATION: JOB ID: [id number] [employer]- All Rights Reserved Reading location - IP/workstation name: [email or web address]
[2018-07-10] MEDS ORDERED: ENOXAPARIN SODIUM INJ 80 MG/0.8 ML DISP.SYRIN SUBCUT ONE (17:44)
--- NOTE | 2018-07-10 18:01 | PDOC TRANSFER SUMMARY ---
General Admission Date/PCP: 07/10/18 02:20 RAJENDRA ISIDRO MD Resuscitation Status: Full Code - Transfer Diagnosis (1) CHF (congestive heart failure) Is this a current diagnosis for this admission?: Yes (2) Hypertensive emergency Is this a current diagnosis for this admission?: Yes (3) Acute non-ST elevation myocardial infarction (NSTEMI) Is this a current diagnosis for this admission?: Yes (4) Chest pain Is this a current diagnosis for this admission?: Yes - Transfer Medications Home Medications: Atorvastatin Calcium [Lipitor 20 mg Tablet] 20 mg PO QHS 07/10/18 Doxazosin Mesylate [Cardura 2 mg Tablet] 2 mg PO DAILY 07/10/18 Empagliflozin [Jardiance] 25 mg PO DAILY 07/10/18 Insulin Aspart [Novolog Insulin (Aspart) 100 unit/mL] 0 units SQ .SLIDING SCALE 07/10/18 Insulin Glargine,Hum.rec.anlog [Lantus Insulin 100 Unit/1 ml 10 ml] 80 units SQ QHS 07/10/18 Isosorbide Mononitrate [Imdur 30 mg Tablet.er] 30 mg PO DAILY 07/10/18 Nitroglycerin [Nitrostat 0.4 mg (1/150 Gr) Tabs 25/Bottle] 0.4 mg SL Q5MP PRN 07/10/18 Simvastatin [Zocor 20 mg Tablet] 20 mg PO QHS 07/10/18 Zolpidem Tartrate [Ambien] 10 mg PO HSP PRN 07/10/18 Transfer Medications: Current Medications Acetaminophen (Tylenol 325 Mg Tablet) 650 mg PO Q4HP PRN PRN Reason: FOR PAIN OR TEMP Stop: 08/09/18 02:00 Al Hydrox/Mg Hydrox/Simethicone (Maalox Plus Susp 30 Udcup) 30 ml PO Q6HP PRN PRN Reason: HEARTBURN Stop: 08/09/18 02:00 Aspirin (Ecotrin 325 Mg Ec Tablet) 325 mg PO DAILY [facility] Stop: 08/09/18 09:59 Last Admin: 07/10/18 10:42 Dose: 325 mg Documented by: Atorvastatin Calcium (Lipitor 20 Mg Tablet) 20 mg PO QHS [facility] Stop: 08/09/18 21:59 Dextrose (Dextrose Inj 50% Syringe (25 Gm/50 Ml)) 12.5 gm IV PRN PRN; Protocol PRN Reason: FOR BG 50-69 IN ALERT PATIENT Stop: 08/09/18 02:06 Dextrose (Dextrose Inj 50% Syringe (25 Gm/50 Ml)) 25 gm IV PRN PRN; Protocol PRN Reason: PER PROTOCOL Stop: 08/09/18 02:06 Doxazosin Mesylate (Cardura 2 Mg Tablet) 2 mg PO DAILY [facility] Stop: 08/09/18 09:59 Last Admin: 07/10/18 10:42 Dose: 2 mg Documented by: Enoxaparin Sodium (Lovenox Inj 80 Mg/0.8 Ml Disp.Syrin) 80 mg SUBCUT ONCE ONE Stop: 07/10/18 17:45 Furosemide (Lasix 40 Mg Tablet) 40 mg PO QAM [facility] Stop: 08/09/18 07:59 Last Admin: 07/10/18 08:36 Dose: 40 mg Documented by: Glucagon (Glucagen Inj 1 Mg Vial) 1 mg IM PRN PRN; Protocol PRN Reason: Evaluate for BG < 70 Stop: 08/09/18 02:06 Glucose (Glutose 40% Gel 15 Gm Tube) 30 gm PO PRN PRN; Protocol PRN Reason: FOR BG < 50 IN ALERT PATIENT Stop: 08/09/18 02:06 Glucose (Glutose 40% Gel 15 Gm Tube) 15 gm PO PRN PRN; Protocol PRN Reason: FOR BG 50-69 IN ALERT PATIENT Stop: 08/09/18 02:06 Heparin Sodium (Porcine) (Heparin Inj 5,000 Units/Ml 1 Ml Syringe) 5,000 unit SUBCUT Q8 [facility] Stop: 08/09/18 05:59 Last Admin: 07/10/18 13:04 Dose: 5,000 unit Documented by: Insulin Human Lispro (Humalog Insulin 100 Unit/1 Ml 3 Ml Vial) 0 - 12 unit SUBCUT AC [facility]; Protocol Stop: 08/09/18 07:59 Last Admin: 07/10/18 17:01 Dose: Not Given Documented by: Methocarbamol (Robaxin 500 Mg Tablet) 500 mg PO TIDP PRN PRN Reason: MUSCLE SPASM OR PAIN Stop: 08/09/18 02:03 Metoprolol Tartrate (Lopressor 50 Mg Tablet) 50 mg PO Q12 [facility] Stop: 08/09/18 09:59 Last Admin: 07/10/18 10:42 Dose: 50 mg Documented by: Patient Own Medication (Bupropion Hcl [Bupropion Hcl Sr]) 150 mg PO DAILY [facility] Stop: 08/09/18 09:59 - Allergies Allergies/Adverse Reactions: No Known Allergies Allergy (Verified 01/17/18 11:03) Hospital Course Hospital Course: DK WOLFE is a 73 year old male with past medical history of CAD with prior PTCA, BPH, hypertension, dyslipidemia, diabetes, morbid obesity, obstructive sleep apnea and moderate diastolic heart failure who presented with increasing S OB and elevated blood pressures. He was found to be in CHF exacerbation and was started on nitroglycerin drip and IV Lasix. His EKG shows T wave inversion on I and AVL. His troponin has been significantly trending up from 0.02 to 0.9 to 2.52. He did have a recent stress test 4 months ago which showed a moderate fixed perfusion defect on the basal inferior wall. He was stared on therapeutic Lovenox. He has been chest pain free but has been on nitro drip which was just discontinued this afternoon. Patient closely follows up with [facility] cardiology for his CAD and CHF and he sees Dr. Patrick. 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 Patient may need a cath given his EKG changes, uptrending troponin and recent stress test. He does say he prefers to have a possible repeat cath at [facility] where he follows up. Discussed with Dr. Hutson who accepted the transfer. Physical Exam Vital Signs: Temp Pulse Resp BP Pulse Ox 97.5 F 66 15 155/60 H 97 07/10/18 15:22 07/10/18 15:22 07/10/18 15:22 07/10/18 15:22 07/10/18 15:22 Intake & Output 07/09/18 07/10/18 07/11/18 06:59 06:59 06:59 Intake Total 108 237 Output Total 865 875 Balance -757 -638 Weight 231 lb 7.766 oz General appearance: PRESENT: no acute distress, well-developed, well-nourished Head exam: PRESENT: atraumatic, normocephalic Eye exam: PRESENT: conjunctiva pink, EOMI, PERRLA. ABSENT: scleral icterus Ear exam: PRESENT: normal external ear exam Mouth exam: PRESENT: moist, tongue midline Neck exam: ABSENT: carotid bruit, JVD, lymphadenopathy, thyromegaly Respiratory exam: PRESENT: rales. ABSENT: rhonchi, wheezes Cardiovascular exam: PRESENT: RRR. ABSENT: diastolic murmur, rubs, systolic murmur Pulses: PRESENT: normal dorsalis pedis pul GI/Abdominal exam: PRESENT: normal bowel sounds, soft. ABSENT: distended, guarding, mass, organolmegaly, rebound, tenderness Rectal exam: PRESENT: deferred Neurological exam: PRESENT: alert, awake, oriented to person, oriented to place, oriented to time, oriented to situation, CN II-XII grossly intact. ABSENT: motor sensory deficit Results Laboratory Results: 07/10/18 00:35 07/10/18 02:15 07/10/18 07/10/18 07/10/18 00:35 00:35 02:15 WBC 12.0 H RBC 6.20 H Hgb 17.8 H Hct 54.4 H MCV 88 MCH 28.7 MCHC 32.7 RDW 15.0 H Plt Count 222 Seg Neutrophils % 59.9 Lymphocytes % 29.0 Monocytes % 8.4 Eosinophils % 2.2 Basophils % 0.5 Absolute Neutrophils 7.2 Absolute Lymphocytes 3.5 Absolute Monocytes 1.0 Absolute Eosinophils 0.3 Absolute Basophils 0.1 Sodium 141.1 137.9 Potassium 4.1 4.8 Chloride 101 105 Carbon Dioxide 29 28 Anion Gap 11 5 BUN 22 H 23 H Creatinine 0.85 0.84 Est GFR ( Amer) > 60 > 60 Est GFR (Non-Af Amer) > 60 > 60 Glucose 323 H 374 H Calcium 9.2 8.9 Total Bilirubin 0.7 AST 67 H ALT 59 Alkaline Phosphatase 97 Total Protein 7.7 Albumin 4.3 07/10/18 07/10/18 07/10/18 00:35 02:15 08:17 Troponin I 0.024 0.075 0.911 NT-Pro-B Natriuret Pep 1690 H 07/10/18 11:45 Troponin I 2.520 NT-Pro-B Natriuret Pep Impressions: Chest X-Ray 07/10/18 00:44 IMPRESSION: Bibasilar pleural effusion and/or atelectasis and/or infiltrate. Possible mild pulmonary vascular congestion. copyright 2011 [employer]- All Rights Reserved
[2018-07-10 20:14] VITALS: BP 162/55
[2018-07-10] MEDS ORDERED: ATORVASTATIN CALCIUM 20 MG TABLET PO SCH (22:00)
== END 2018-07-10 20:20 | disposition short-term general hospital (02) | DRG 304 ==
LOC: ER 00:34 → EH 02:20 → 3W 05:52
PROVIDERS: ADMIT Internal Medicine; ATTEND Internal Medicine
DX: I16.1 Hypertensive emergency (principal); J81.0 Acute pulmonary edema; I50.33 Acute on chronic diastolic (congestive) heart failure; I11.0 Hypertensive heart disease with heart failure; E11.8 Type 2 diabetes mellitus with unspecified complications; N40.0 Benign prostatic hyperplasia without lower urinary tract symptoms; G47.33 Obstructive sleep apnea (adult) (pediatric); E66.01 Morbid (severe) obesity due to excess calories; Z79.82 Long term (current) use of aspirin; Z79.4 Long term (current) use of insulin; Z79.899 Other long term (current) drug therapy
CPT/HCPCS: 36415; 71045; 80048; 80053; 82962; 83880; 84484; 85025; 93005; 93010; 94660; 96365; 96366; 96375; 99291; J1644; J1650; J1815; J1940; J3490

== ENCOUNTER 2018-08-13 05:19 | Inpatient (IN) | payer MEDICARE, OTHER ==
[2018-08-13] MEDS ORDERED: NITROGLYCERIN/D5W 50 MG/250 ML RTUINJ IV PRN (05:25)
--- NOTE | 2018-08-13 05:29 | ER Document Report ---
ED General - General Stated Complaint: RESPIRATORY DISTRESS Time Seen by Provider: 08/13/18 05:24 Primary Care Provider: RAJENDRA ISIDRO MD [Primary Care Provider] - Follow up as needed TRAVEL OUTSIDE OF THE [place] IN LAST 30 DAYS: No - HPI Notes: Patient is a 73-year-old male who presents to the emergency department for evaluation of shortness of breath. He states this started at 3:00 this morning while he was in the shower. He states he is more short of breath with exertion. He does have a mild cough, states is nonproductive. He denies any pain of any sort. He does have lower extremity edema, states that has been intermittently happening for the last several years. He does have cardiac stents, recently placed at [facility] in the last few weeks. He denies any associated chest p ain. He states he has been taking his medications as directed. - Related Data Allergies/Adverse Reactions: No Known Allergies Allergy (Verified 01/17/18 11:03) Past Medical History - General Information source: Patient - Social History Smoking Status: Former Smoker Drug Abuse: None Family History: CAD - Positive but not premature - Past Medical History Cardiac Medical History: Reports: Hx Congestive Heart Failure, Hx Coronary Artery Disease, Hx Hypercholesterolemia, Hx Hypertension Pulmonary Medical History: Reports: Hx Sleep Apnea Endocrine Medical History: Reports: Hx Diabetes Mellitus Type 2 Renal/ Medical History: Denies: Hx Peritoneal Dialysis Psychiatric Medical History: Denies: Hx Depression Past Surgical History: Reports: Hx Cardiac Catheterization Review of Systems - Review of Systems Constitutional: No symptoms reported EENT: No symptoms reported Respiratory: See HPI Gastrointestinal: See HPI Genitourinary: No symptoms reported Musculoskeletal: No symptoms reported Skin: No symptoms reported Neurological/Psychological: No symptoms reported Physical Exam - Vital signs Vitals: Temp Pulse Ox 98 F 82 L 08/13/18 05:21 08/13/18 05:21 - Notes Notes: Vital signs reviewed, please refer to chart. Patient brought in on the stretcher with BiPAP in place. He has markedly increased work of breathing. Tachypneic. Head is normocephalic, atraumatic. Pupils equal round, reactive to light. Neck is supple without meningismus. Heart is regular rate and rhythm. Lungs reveal extensive rales. Abdomen is soft, nontender, normoactive bowel sounds throughout. Extremities without cyanosis, clubbing. 3+ pitting edema to the pretibial region. Posterior calves are nontender. Peripheral pulses are equal. Skin is cool and diaphoretic. Patient is awake, alert, neurological exam is nonfocal. Course - Re-evaluation Re-evalutation: 08/13/18 05:29 She presented to the emergency department for evaluation. He is markedly tachypneic. His findings are most consistent with acute heart failure. He was markedly hypertensive. He was started on nitroglycerin drip at 50 mics, will titrate up as tolerated. BiPAP was instituted immediately. Patient's work of breathing decreased slowly, will continue to follow. 08/13/18 06:28 Patient was maintained on nitroglycerin at 50 mcg until his blood pressure would not tolerate it. His blood pressure dropped to 88/40. The nitroglycerin was discontinued. The BiPAP was maintained. His respiratory rate had improved. He is now oxygenating 98% on 40% FiO2. Blood pressure did increase again, systolic blood pressure was over 120, low-dose nitroglycerin was instituted at 5 mics. Patient improved markedly from a respiratory standpoint. Laboratory investigations beginning to be resulted, cardiac enzymes pending. 08/13/18 06:45 Patient remained stable. Will DC nitro drip, placed Nitropaste. I spoke with Dr. Selby. He believes admission is appropriate and will pass this along to the day team. Patient will be admitted to [facility] [place]. - Vital Signs Vital signs: Temp Pulse Resp BP Pulse Ox 98 F 28 H 133/56 H 99 08/13/18 05:21 08/13/18 06:20 08/13/18 06:20 08/13/18 06:20 - Laboratory Result Diagrams: 08/13/18 05:26 08/13/18 05:26 Laboratory results interpreted by me: 08/13/18 08/13/18 08/13/18 05:26 05:26 05:26 WBC 13.1 H RBC 6.25 H Hgb 17.5 H Hct 53.9 H RDW 15.6 H Absolute Neutrophils 9.2 H Sodium 145.5 H BUN 23 H Glucose 223 H Direct Bilirubin 0.5 H Alkaline Phosphatase 129 H Creatine Kinase 182 H NT-Pro-B Natriuret Pep 2580 H Total Protein 8.5 H 08/13/18 05:26 08/13/18 05:26 MCV 86 fl (80-97) 08/13/18 05:26 MCH 28.0 pg (27.0-33.4) 08/13/18 05:26 MCHC 32.4 g/dL (32.0-36.0) 08/13/18 05:26 RDW 15.6 % (11.5-14.0) H 08/13/18 05:26 Seg Neutrophils % 70.0 % (42-78) 08/13/18 05:26 Lymphocytes % 21.7 % (13-45) 08/13/18 05:26 Monocytes % 4.9 % (3-13) 08/13/18 05:26 Eosinophils % 2.7 % (0-6) 08/13/18 05:26 Basophils % 0.7 % (0-2) 08/13/18 05:26 Absolute Neutrophils 9.2 10^3/uL (1.7-8.2) H 08/13/18 05:26 Absolute Lymphocytes 2.8 10^3/uL (0.5-4.7) 08/13/18 05:26 Absolute Monocytes 0.6 10^3/uL (0.1-1.4) 08/13/18 05:26 Absolute Eosinophils 0.4 10^3/uL (0.0-0.6) 08/13/18 05:26 Absolute Basophils 0.1 10^3/uL (0.0-0.2) 08/13/18 05:26 Chloride 105 mmol/L (98-107) 08/13/18 05:26 Carbon Dioxide 26 mmol/L (22-30) 08/13/18 05:26 Anion Gap 15 (5-19) 08/13/18 05:26 Est GFR ( Amer) > 60 (>60) 08/13/18 05:26 Est GFR (Non-Af Amer) > 60 (>60) 08/13/18 05:26 Glucose 223 mg/dL (75-110) H 08/13/18 05:26 Calcium 9.5 mg/dL (8.4-10.2) 08/13/18 05:26 Total Bilirubin 1.0 mg/dL (0.2-1.3) 08/13/18 05:26 AST 33 U/L (17-59) 08/13/18 05:26 ALT 44 U/L (21-72) 08/13/18 05:26 Alkaline Phosphatase 129 U/L (38-126) H 08/13/18 05:26 Total Protein 8.5 g/dL (6.3-8.2) H 08/13/18 05:26 Albumin 4.6 g/dL (3.5-5.0) 08/13/18 05:26 08/13/18 05:26 Creatine Kinase 182 H - Diagnostic Test Radiology reviewed: Reports reviewed Radiology results interpreted by me: 08/13/18 06:30 Chest X-Ray 08/13/18 05:24 IMPRESSION: Moderate pulmonary edema. - EKG Interpretation by Me Additional EKG results interpreted by me: 08/13/18 06:30 Sinus rhythm with a rate of 80 bpm. Left axis deviation. IVCD. LVH with ST changes laterally consistent with likely strain. Unchanged when compared to prior study of July 10, 2017. Critical Care Note - Critical Care Note Total time excluding time spent on procedures (mins): 30 Discharge - Discharge Clinical Impression: Flash pulmonary edema, CHF (congestive heart failure) Condition: Stable Disposition: ADMITTED INPATIENT Admitting Provider: [place] (Hospitalist) - Will be passed on to the day team Unit Admitted: IMCU Referrals: RAJENDRA ISIDRO MD [Primary Care Provider] - Follow up as needed
[2018-08-13 05:45] LABS: ABSOLUTE BASOPHILS # (AUTO) 0.1 10^3/uL (0.0-0.2); ABSOLUTE EOSINOPHILS # (AUTO) 0.4 10^3/uL (0.0-0.6); ABSOLUTE LYMPHOCYTES (AUTO) 2.8 10^3/uL (0.5-4.7); ABSOLUTE MONOCYTES (AUTO) 0.6 10^3/uL (0.1-1.4); ABSOLUTE NEUT (AUTO) 9.2 10^3/uL (1.7-8.2); BASOPHILS % (AUTO) 0.7 % (0-2); EOSINOPHILS % (AUTO) 2.7 % (0-6); HEMATOCRIT 53.9 % (37.9-51.0); HEMOGLOBIN 17.5 g/dL (13.5-17.0); LYMPHOCYTES % (AUTO) 21.7 % (13-45); MEAN CORPUSCULAR HGB CONC 32.4 g/dL (32.0-36.0); MEAN CORPUSCULAR VOLUME 86 fl (80-97); MONOCYTES % (AUTO) 4.9 % (3-13); RED BLOOD COUNT 6.25 10^6/uL (4.35-5.55); RED CELL DISTRIBUTION WIDTH 15.6 % (11.5-14.0); TOTAL CELLS COUNTED % (AUTO) 100 %; WHITE BLOOD COUNT 13.1 10^3/uL (4.0-10.5)
--- NOTE | 2018-08-13 06:05 | RADIOLOGY REPORT (SQ) ---
CLINICAL HISTORY: dyspnea COMPARISON: July 10, 2018. TECHNIQUE: XR CHEST 1 VIEW 08/13/2018 5:24 AM CDT FINDINGS: The heart is enlarged. There is moderate pulmonary edema. There are small pleural effusions. There is no pneumothorax. There are no acute osseous findings. IMPRESSION: Moderate pulmonary edema.
[2018-08-13 06:13] LABS: PLATELET COUNT 222 10^3/uL (150-450)
[2018-08-13 06:17] LABS: ALANINE AMINOTRANSFERASE 44 U/L (21-72); ALBUMIN 4.6 g/dL (3.5-5.0); ALKALINE PHOSPHATASE 129 U/L (38-126); ANION GAP 15 (5-19); ASPARTATE AMINO TRANSFERASE 33 U/L (17-59); BILIRUBIN,DIRECT 0.5 mg/dL (0.0-0.4); BLOOD UREA NITROGEN 23 mg/dL (7-20); CALCIUM 9.5 mg/dL (8.4-10.2); CARBON DIOXIDE 26 mmol/L (22-30); CHLORIDE 105 mmol/L (98-107); CREATINE KINASE 182 U/L (55-170); GLUCOSE 223 mg/dL (75-110); POTASSIUM 4.2 mmol/L (3.6-5.0); SODIUM 145.5 mmol/L (137-145); TOTAL PROTEIN 8.5 g/dL (6.3-8.2)
[2018-08-13 06:27] LABS: CREATINE KINASE MB 2.78 ng/mL (<4.55); TROPONIN I 0.024 ng/mL
[2018-08-13] MEDS ORDERED: NITROGLYCERIN 2% OINTMENT 1 GM PACKET TP ONE (06:41)
[2018-08-13] MEDS ORDERED: IPRATROPIUM/ALBUTEROL 0.5-2.5 MG/3 ML AMPUL NEB PRN (09:58)
[2018-08-13 10:22] LABS: APPEARANCE,URINE CLEAR; BILIRUBIN,URINE NEGATIVE (NEGATIVE); COLOR,URINE YELLOW; GLUCOSE, URINE >=500 mg/dL (NEGATIVE); KETONES,URINE TRACE mg/dL (NEGATIVE); LEUKOCYTE ESTERASE,URINE NEGATIVE (NEGATIVE); NITRITE,URINE NEGATIVE (NEGATIVE); PROTEIN,URINE 100 mg/dL (NEGATIVE); URINE SPECIFIC GRAVITY 1.037; UROBILINOGEN,URINE NEGATIVE mg/dL (<2.0)
--- NOTE | 2018-08-13 11:12 | EKG REPORT ---
SEVERITY:- ABNORMAL ECG - SINUS RHYTHM PROBABLE LEFT ATRIAL ABNORMALITY LVH WITH SECONDARY REPOLARIZATION ABNORMALITY PROBABLE INFERIOR INFARCT, AGE INDETERMINATE : Confirmed by: Karl Lai 13-Aug-2018 11:11:30
[2018-08-13] MEDS: VALSARTAN 40 MG TABLET PO SCH (12:14)
[2018-08-13] MEDS: ISOSORBIDE MONONITRATE 30 MG TAB.ER.24H PO SCH (12:14)
[2018-08-13] MEDS: FUROSEMIDE INJ/PF 40 MG/4 ML SDV IV SCH ×2 (12:14→21:53)
[2018-08-13] MEDS: HEPARIN SOD (PORCINE) 5,000 UNIT/ML 1 ML SYRINGE SUBCUT SCH ×2 (13:07→21:51)
--- NOTE | 2018-08-13 16:33 | PDOC H&P ---
History of Present Illness Admission Date/PCP: 08/13/18 06:54 RAJENDRA ISIDRO MD History of Present Illness: DK WOLFE is a 73 year old male who was recently sent from this hospital to [facility] when he had chest pain and pulmonary edema and elevated troponins, and he said they put for cardiac stents in him when he got up there. He said he was in his usual state of health when he was taking a shower at around 3 AM because he said he could not sleep, and then he began to experience sudden onset of shortness of breath and he felt a gurgling sensation fluid in his chest like he had when he presented here last time. He did not have any chest pain. He has not had any fevers. No cough. He was hypoxemic when he showed up and had to be put on BiPAP. His blood pressure was substantially elevated. He is being admitted for diuresis, management of his hypoxemia, and blood pressure control. Past Medical History Cardiac Medical History: Reports: Congestive Heart Failure, Coronary Artery Disease, Hyperlipidema, Hypertension Pulmonary Medical History: Reports: Sleep Apnea Endocrine Medical History: Reports: Diabetes Mellitus Type 2 Psychiatric Medical History: Denies: Depression Past Surgical History Past Surgical History: Reports: Cardiac Catheterization Social History Smoking Status: Former Smoker Cigarettes Packs Per Day: 0.5 Number of Years Smokin Frequency of Alcohol Use: None Hx Recreational Drug Use: No Drugs: None Hx Prescription Drug Abuse: No - Advance Directive Resuscitation Status: Full Code Family History Family History: CAD - Positive but not premature Parental Family History Reviewed: Yes - CAD Children Family History Reviewed: Yes - Nothing known Sibling(s) Family History Reviewed.: Yes - Nothing known Medication/Allergy Home Medications: Aspirin [Ecotrin 81 mg EC Tablet] 81 mg PO DAILY 08/13/18 Atorvastatin Calcium [Lipitor 20 mg Tablet] 20 mg PO QHS 08/13/18 Empagliflozin [Jardiance] 25 mg PO DAILY 08/13/18 Furosemide [Lasix 40 mg Tablet] 40 mg PO QAM 08/13/18 Isosorbide Mononitrate [Imdur 30 mg Tablet.er] 30 mg PO DAILY 08/13/18 Meloxicam [Mobic] 7.5 mg PO Q12 08/13/18 Metoprolol Tartrate [Lopressor 50 mg Tablet] 50 mg PO Q12 08/13/18 Ticagrelor [Brilinta 90 mg Tablet] 1 tab PO BID 08/13/18 Valsartan [Diovan 40 mg Tablet] 40 mg PO DAILY 08/13/18 Zolpidem Tartrate [Ambien] 10 mg PO QHS 08/13/18 Allergies/Adverse Reactions: No Known Allergies Allergy (Verified 01/17/18 11:03) Review of Systems All systems: reviewed and no additional remarkable complaints except as stated - All systems were reviewed and were negative except as noted above Physical Exam Vital Signs: Temp Pulse Resp BP Pulse Ox 98 F 69 22 H 167/70 H 97 08/13/18 05:21 08/13/18 14:00 08/13/18 12:06 08/13/18 10:31 08/13/18 14:21 Intake & Output 08/12/18 08/13/18 08/14/18 06:59 06:59 06:59 Intake Total 1 249 Output Total 350 Balance 1 -101 Weight 104 kg General appearance: PRESENT: cooperative, disheveled, mild distress - On BiPAP, morbidly obese Head exam: PRESENT: atraumatic, normocephalic Eye exam: PRESENT: EOMI, PERRLA. ABSENT: conjunctival injection, nystagmus, scleral icterus Ear exam: PRESENT: normal external ear exam Mouth exam: PRESENT: moist, neck supple Teeth exam: PRESENT: poor dentation Throat exam: ABSENT: post pharyngeal erythema Neck exam: PRESENT: full ROM. ABSENT: carotid bruit, JVD, lymphadenopathy, meningismus, tenderness, thyromegaly Respiratory exam: PRESENT: crackles, decreased breath sounds, symmetrical, unlabored. ABSENT: accessory muscle use, prolonged expiratory phas, rhonchi, tachypnea, wheezes Cardiovascular exam: PRESENT: RRR, +S1, +S2, systolic murmur Pulses: PRESENT: normal carotid pulses Vascular exam: PRESENT: normal capillary refill GI/Abdominal exam: PRESENT: normal bowel sounds, soft. ABSENT: distended, guarding, rebound, tenderness Extremities exam: ABSENT: clubbing, pedal edema Musculoskeletal exam: PRESENT: normal inspection. ABSENT: deformity Neurological exam: PRESENT: alert, awake, oriented to person, oriented to place, oriented to time, oriented to situation, CN II-XII grossly intact. ABSENT: motor sensory deficit Psychiatric exam: PRESENT: appropriate affect, normal mood Skin exam: PRESENT: dry, warm Results Laboratory Results: 08/13/18 05:26 08/13/18 05:26 08/13/18 08/13/18 08/13/18 05:26 05:26 07:52 WBC 13.1 H RBC 6.25 H Hgb 17.5 H Hct 53.9 H MCV 86 MCH 28.0 MCHC 32.4 RDW 15.6 H Plt Count 222 Seg Neutrophils % 70.0 Lymphocytes % 21.7 Monocytes % 4.9 Eosinophils % 2.7 Basophils % 0.7 Absolute Neutrophils 9.2 H Absolute Lymphocytes 2.8 Absolute Monocytes 0.6 Absolute Eosinophils 0.4 Absolute Basophils 0.1 Sodium 145.5 H Potassium 4.2 Chloride 105 Carbon Dioxide 26 Anion Gap 15 BUN 23 H Creatinine 0.89 Est GFR ( Amer) > 60 Est GFR (Non-Af Amer) > 60 Glucose 223 H Calcium 9.5 Total Bilirubin 1.0 AST 33 ALT 44 Alkaline Phosphatase 129 H Total Protein 8.5 H Albumin 4.6 Urine Color YELLOW Urine Appearance CLEAR Urine pH 6.0 Ur Specific [place] 1.037 Urine Protein 100 H Urine Glucose (UA) >=500 H Urine Ketones TRACE H Urine Blood SMALL H Urine Nitrite NEGATIVE Ur Leukocyte Esterase NEGATIVE Urine WBC (Auto) 2 Urine RBC (Auto) 6 08/13/18 08/13/18 08/13/18 05:26 05:26 12:30 Creatine Kinase 182 H CK-MB (CK-2) 2.78 Troponin I 0.024 1.130 NT-Pro-B Natriuret Pep 2580 H Impressions: Chest X-Ray 08/13/18 05:24 IMPRESSION: Moderate pulmonary edema. Assessment and Plan - Diagnosis (1) Respiratory failure with hypoxia Qualifiers: Chronicity: acute Qualified Code(s): J96.01 - Acute respiratory failure with hypoxia Is this a current diagnosis for this admission?: Yes Plan: He is BiPAP and supplemental O2 to maintain SPO2 greater and 90% (2) Flash pulmonary edema Is this a current diagnosis for this admission?: Yes Plan: Likely secondary to his hypertensive emergency. Were given him some IV Lasix to try to pull some extra fluid off of him while he was blood pressure under control. (3) Hypertensive emergency Is this a current diagnosis for this admission?: Yes Plan: We will get him back on his home medications were monitoring his blood pressure to see if he needs to be having anything as needed at this time (4) Coronary artery disease Qualifiers: Coronary Disease-Associated Artery/Lesion type: [place] artery [place] vs. transplanted heart: [place] heart Associated angina: without angina Qualified Code(s): I25.10 - Atherosclerotic heart disease of [place] coronary artery without angina pectoris Is this a current diagnosis for this admission?: Yes Plan: We will be sure to resume his home medications, including his Brilinta and aspirin, because he just had stents placed a few weeks ago (5) Diabetes mellitus Qualifiers: Diabetes mellitus type: type 2 Diabetes mellitus longterm insulin use: without ferry terminal agent use Diabetes mellitus complication status: with unspecified complications Qualified Code(s): E11.8 - Type 2 diabetes mellitus with unspecified complications Is this a current diagnosis for this admission?: Yes Plan: We will continue his home medications and add a sliding scale, diabetic diet - Time Time Spent with patient: 35 or more minutes - Inpatient Certification Based on my medical assessment, after consideration of the patient's comorbidities, presenting symptoms, or acuity I expect that the services needed warrant INPATIENT care.: Yes I certify that my determination is in accordance with my understanding of Medicare's requirements for reasonable and necessary INPATIENT services [42 CFR 412.3e].: Yes Medical Necessity: Significant Comorbidiites Make Outpatient Treatment Too Risky, Need Close Monitoring Due to Risk of Patient Decompensation, Need For Continuous Telemetry Monitoring, Risk of Complication if Not Cared For in Hospital
[2018-08-13] MEDS: TICAGRELOR 90 MG TABLET PO SCH (17:36)
[2018-08-13] MEDS ORDERED: DEXTROSE 50%-WATER 25 GM/50 ML DISP.SYRIN IV PRN ×2 (20:18)
[2018-08-13] MEDS ORDERED: GLUCAGON,HUMAN RECOMB 1 MG INJ IM PRN (20:18)
[2018-08-13] MEDS ORDERED: DEXTROSE 40% GEL 15 GM TUBE PO PRN ×2 (20:18)
[2018-08-13] MEDS ORDERED: INSULIN GLARGINE,HUM.REC.ANLOG 1,000 UNIT/10 ML VIAL (PYX) SUBCUT PRN (20:25)
[2018-08-13] MEDS: METOPROLOL TARTRATE 50 MG TABLET PO SCH (21:53)
[2018-08-13] MEDS ORDERED: ZOLPIDEM TARTRATE 5 MG TABLET PO SCH (22:00)
[2018-08-13] MEDS ORDERED: ATORVASTATIN CALCIUM 20 MG TABLET PO SCH (22:00)
[2018-08-13] MEDS ORDERED: (PENDING PHARMACY ID) (Zolpidem Tartrate [Ambien] 10 MG) PO SCH (22:00)
[2018-08-13] MEDS ORDERED: INSULIN GLARGINE,HUM.REC.ANLOG 1,000 UNIT/10 ML VIAL SUBCUT SCH (22:00)
[2018-08-13] MEDS ORDERED: INSULIN GLARGINE,HUM.REC.ANLOG 1,000 UNIT/10 ML VIAL (PYX) SUBCUT ONE (22:54)
[2018-08-13] MEDS: INSULIN LISPRO 100 UNIT/ML 3 ML VIAL SUBCUT SCH (22:56)
[2018-08-14] MEDS: HEPARIN SOD (PORCINE) 5,000 UNIT/ML 1 ML SYRINGE SUBCUT SCH (06:13)
[2018-08-14 07:00] LABS: ANION GAP 10 (5-19); BLOOD UREA NITROGEN 25 mg/dL (7-20); CALCIUM 8.7 mg/dL (8.4-10.2); CARBON DIOXIDE 27 mmol/L (22-30); CHLORIDE 105 mmol/L (98-107); GLUCOSE 128 mg/dL (75-110); SODIUM 141.6 mmol/L (137-145)
[2018-08-14] MEDS ORDERED: NITROGLYCERIN 0.4 MG/TAB 25 TAB/BOTTLE SL PRN (08:10)
--- NOTE | 2018-08-14 08:26 | RADIOLOGY REPORT (SQ) ---
EXAM DESCRIPTION: CHEST SINGLE VIEW COMPLETED DATE/TIME: 08/14/2018 7:45 am REASON FOR STUDY: pulmonary edema COMPARISON: 08/13/2018 EXAM PARAMETERS: NUMBER OF VIEWS: One view. TECHNIQUE: Single frontal radiographic view of the chest acquired. RADIATION DOSE: NA LIMITATIONS: None. FINDINGS: LUNGS AND PLEURA: Marked improvement in the appearance of the lungs with near complete imp roved marked improvement with near complete resolution of the pulmonary edema pattern. Residual smal l left effusion. MEDIASTINUM AND HILAR STRUCTURES: No masses. Contour normal. HEART AND VASCULAR STRUCTURES: Heart normal in size. Normal vasculature. BONES: No acute findings. HARDWARE: None in the chest. OTHER: No other significant finding. IMPRESSION: Near complete resolution of the pulmonary edema pattern. TECHNICAL DOCUMENTATION: JOB ID: [id number] [employer]- All Rights Reserved Reading location - IP/workstation name: [email or web address]
[2018-08-14 08:30] LABS: ABSOLUTE EOSINOPHILS # (AUTO) 0.1 10^3/uL (0.0-0.6); ABSOLUTE LYMPHOCYTES (AUTO) 1.4 10^3/uL (0.5-4.7); ABSOLUTE MONOCYTES (AUTO) 0.9 10^3/uL (0.1-1.4); ABSOLUTE NEUT (AUTO) 7.8 10^3/uL (1.7-8.2); BASOPHILS % (AUTO) 0.4 % (0-2); EOSINOPHILS % (AUTO) 0.7 % (0-6); LYMPHOCYTES % (AUTO) 13.9 % (13-45); MEAN CORPUSCULAR HEMOGLOBIN 27.7 pg (27.0-33.4); MEAN CORPUSCULAR HGB CONC 32.4 g/dL (32.0-36.0); MEAN CORPUSCULAR VOLUME 86 fl (80-97); MONOCYTES % (AUTO) 8.3 % (3-13); PLATELET COUNT 176 10^3/uL (150-450); RED BLOOD COUNT 5.27 10^6/uL (4.35-5.55); RED CELL DISTRIBUTION WIDTH 14.9 % (11.5-14.0); SEGMENTED NEUTROPHILS % (AUTO) 76.7 % (42-78); TOTAL CELLS COUNTED % (AUTO) 100 %; WHITE BLOOD COUNT 10.2 10^3/uL (4.0-10.5)
[2018-08-14 08:45] LABS: HEMOGLOBIN 14.6 g/dL (13.5-17.0)
[2018-08-14] MEDS: INSULIN LISPRO 100 UNIT/ML 3 ML VIAL SUBCUT SCH ×2 (08:59→11:17)
--- NOTE | 2018-08-14 09:43 | PDOC TRANSFER SUMMARY ---
General Admission Date/PCP: 08/13/18 06:54 RAJENDRA ISIDRO MD Transfer Date: 08/14/18 Accepting Facility: [facility] Accepting Physician: Dr. Tobar Resuscitation Status: Full Code - Transfer Diagnosis (1) Respiratory failure with hypoxia Is this a current diagnosis for this admission?: Yes Diagnosis Summary: Due to flash pulmonary edema. Has responded well to diuresis. Was initially on BiPAP, now stable on nasal cannula. (2) Flash pulmonary edema Is this a current diagnosis for this admission?: Yes Diagnosis Summary: Initially suspected to be due to a hypertensive emergency with his background of coronary artery disease and heart failure, but his troponins have also gone up a fair amount, therefore the possibility of coronary ischemia as a trigger for his acute decompensation exists. (3) Hypertensive emergency Is this a current diagnosis for this admission?: Yes Diagnosis Summary: Systolic was in the 200s whenever he came in. He says he is been taking all of his medications as directed. Blood pressures been much better controlled since he was admitted. (4) Coronary artery disease Is this a current diagnosis for this admission?: Yes Diagnosis Summary: Recent percutaneous intervention with 4 stents about 3 weeks ago according to the patient. He has been on aspirin and Brilinta. He is continued on his medications here. (5) Diabetes mellitus Is this a current diagnosis for this admission?: Yes Diagnosis Summary: Controlled with his home medications and a sliding scale. - Transfer Medications Home Medications: Aspirin [Ecotrin 81 mg EC Tablet] 81 mg PO DAILY 08/13/18 Atorvastatin Calcium [Lipitor 20 mg Tablet] 20 mg PO QHS 08/13/18 Empagliflozin [Jardiance] 25 mg PO DAILY 08/13/18 Furosemide [Lasix 40 mg Tablet] 40 mg PO QAM 08/13/18 Isosorbide Mononitrate [Imdur 30 mg Tablet.er] 30 mg PO DAILY 08/13/18 Meloxicam [Mobic] 7.5 mg PO Q12 08/13/18 Metoprolol Tartrate [Lopressor 50 mg Tablet] 50 mg PO Q12 08/13/18 Ticagrelor [Brilinta 90 mg Tablet] 1 tab PO BID 08/13/18 Valsartan [Diovan 40 mg Tablet] 40 mg PO DAILY 08/13/18 Zolpidem Tartrate [Ambien] 10 mg PO QHS 08/13/18 Transfer Medications: Current Medications Albuterol/Ipratropium (Duoneb 3 Ml Ampul) 3 ml NEB RTQ4HP PRN PRN Reason: SHORTNESS OF BREATH Stop: 09/12/18 09:57 Aspirin (Ecotrin 81 Mg Ec Tablet) 81 mg PO DAILY [facility] Stop: 09/13/18 09:59 Atorvastatin Calcium (Lipitor 20 Mg Tablet) 20 mg PO QHS [facility] Stop: 09/12/18 21:59 Last Admin: 08/13/18 21:52 Dose: 20 mg Documented by: Dextrose (Dextrose Inj 50% Syringe (25 Gm/50 Ml)) 12.5 gm IV PRN PRN; Protocol PRN Reason: FOR BG 50-69 IN ALERT PATIENT Stop: 09/12/18 20:17 Dextrose (Dextrose Inj 50% Syringe (25 Gm/50 Ml)) 25 gm IV PRN PRN; Protocol PRN Reason: PER PROTOCOL Stop: 09/12/18 20:17 Enoxaparin Sodium (Lovenox Inj 120 Mg/0.8 Ml Disp.Syrin) 105 mg SUBCUT Q12 [facility] Stop: 09/13/18 09:59 Furosemide (Lasix Inj/Pf 40 Mg/4 Ml Sdv) 40 mg IV Q12 [facility] Stop: 09/12/18 11:44 Last Admin: 08/13/18 21:53 Dose: 40 mg Documented by: Glucagon (Glucagen Inj 1 Mg Vial) 1 mg IM PRN PRN; Protocol PRN Reason: Evaluate for BG < 70 Stop: 09/12/18 20:17 Glucose (Glutose 40% Gel 15 Gm Tube) 15 gm PO PRN PRN; Protocol PRN Reason: FOR BG 50-69 IN ALERT PATIENT Stop: 09/12/18 20:17 Glucose (Glutose 40% Gel 15 Gm Tube) 30 gm PO PRN PRN; Protocol PRN Reason: FOR BG < 50 IN ALERT PATIENT Stop: 09/12/18 20:17 Insulin Glargine (Lantus Insulin 100 Unit/1 Ml 10 Ml) [facility] Stop: 09/12/18 21:59 Last Admin: 08/13/18 22:57 Dose: 40 unit Documented by: Insulin Human Lispro (Humalog Insulin 100 Unit/1 Ml 3 Ml Vial) 0 - 12 unit SUBCUT [facility]; Protocol Stop: 09/12/18 21:59 Last Admin: 08/14/18 08:59 Dose: Not Given Documented by: Isosorbide Mononitrate (Imdur 30 Mg Tablet.Er) 30 mg PO DAILY [facility] Stop: 09/12/18 11:59 Last Admin: 08/13/18 12:14 Dose: 30 mg Documented by: Metoprolol Tartrate (Lopressor 50 Mg Tablet) 50 mg PO Q12 [facility] Stop: 09/12/18 21:59 Last Admin: 08/13/18 21:53 Dose: Not Given Documented by: Nitroglycerin (Nitrostat 0.4 Mg (1/150 Gr) Tabs 25/Bottle) 1 tab SL Q5MP PRN PRN Reason: FOR CHEST PAIN X 3 DOSES Stop: 09/13/18 08:09 Patient Own Medication (Empagliflozin [Jardiance]) 25 mg PO .DAILY [facility] Stop: 09/13/18 09:59 Ticagrelor (Brilinta 90 Mg Tablet) 90 mg PO BID [facility] Stop: 09/12/18 17:59 Last Admin: 08/13/18 17:36 Dose: 90 mg Documented by: Valsartan (Diovan 40 Mg Tablet) 40 mg PO DAILY [facility] Stop: 09/12/18 11:59 Last Admin: 08/13/18 12:14 Dose: 40 mg Documented by: Zolpidem Tartrate (Ambien 5 Mg Tablet) 10 mg PO QHS [facility] Stop: 08/20/18 21:59 Last Admin: 08/13/18 21:49 Dose: 10 mg Documented by: - Allergies Allergies/Adverse Reactions: No Known Allergies Allergy (Verified 01/17/18 11:03) - Diet/Activity Discharge Diet: Cardiac, Diabetic Hospital Course Hospital Course: DK WOLFE is a 73 year old male who was recently sent from this hospital to [facility] when he had chest pain and pulmonary edema and elevated troponins, and he said they put four cardiac stents in him when he got up there. He said he was in his usual state of health when he was taking a shower at around 3 AM because he said he could not sleep, and then he began to experience sudden onset of shortness of breath and he felt a gurgling sensation fluid in his chest like he had when he presented here last time. He did not have any chest pain. He has not had any fevers. No cough. He was hypoxemic when he showed up and had to be put on BiPAP. His blood pressure was substantially elevated. He is being admitted for diuresis, management of his hypoxemia, and blood pressure control. He has responded very well to diuretics here. His chest x-ray shows near complete resolution of the pulmonary edema that he had on initial presentation. He is off BiPAP and currently on 2 to 3 L per nasal cannula. No complaints of any chest pain. No new obvious EKG changes. He has, however, had an up trend in his troponins, the last one this morning shows that they are still going up, to 12.1 this morning. He was seen in consultation by Dr. Limon. Given that the patient has had a recent intervention, and that he has had another presentation very similar to initial presentation about a month ago, and then his troponins are now trending up in a relatively significant manner, Dr. Limon recommended that the patient be transferred back to [facility]. I spoke with Dr. Beck at [facility], and the patient will be transferred there for a repeat cardiac evaluation. Physical Exam Vital Signs: Temp Pulse Resp BP Pulse Ox 98.9 F 56 L 18 130/58 H 94 08/14/18 04:00 08/14/18 07:00 08/14/18 04:00 08/14/18 04:00 08/14/18 04:00 Intake & Output 08/13/18 08/14/18 08/15/18 06:59 06:59 06:59 Intake Total 1 1197 Output Total 3150 Balance Weight 104 kg 104 kg General appearance: PRESENT: no acute distress, cooperative, disheveled, morbidly obese Respiratory exam: PRESENT: crackles - Faint bibasilar, decreased breath sounds, symmetrical, unlabored. ABSENT: accessory muscle use, chest wall tenderness, prolonged expiratory phas, rhonchi, tachypnea, wheezes Cardiovascular exam: PRESENT: RRR, +S1, +S2, systolic murmur Pulses: PRESENT: normal carotid pulses Vascular exam: PRESENT: normal capillary refill GI/Abdominal exam: PRESENT: normal bowel sounds, soft. ABSENT: distended, guarding, rebound, tenderness Extremities exam: PRESENT: other - Trace leg edema. ABSENT: clubbing, pedal ed mary Musculoskeletal exam: PRESENT: ambulatory, normal inspection. ABSENT: deformity Neurological exam: PRESENT: alert, awake, oriented to person, oriented to place, oriented to time, oriented to situation Psychiatric exam: PRESENT: appropriate affect, normal mood Skin exam: PRESENT: dry, warm Results Laboratory Results: 08/14/18 07:41 08/14/18 06:11 08/13/18 08/14/18 08/14/18 07:52 06:11 06:11 WBC Cancelled RBC Cancelled Hgb Cancelled Hct Cancelled MCV Cancelled MCH Cancelled MCHC Cancelled RDW Cancelled Plt Count Cancelled Seg Neutrophils % Lymphocytes % Monocytes % Eosinophils % Basophils % Absolute Neutrophils Absolute Lymphocytes Absolute Monocytes Absolute Eosinophils Absolute Basophils Sodium 141.6 Potassium 4.0 Chloride 105 Carbon Dioxide 27 Anion Gap 10 BUN 25 H Creatinine 0.85 Est GFR ( Amer) > 60 Est GFR (Non-Af Amer) > 60 Glucose 128 H Calcium 8.7 Urine Color YELLOW Urine Appearance CLEAR Urine pH 6.0 Ur Specific Maury 1.037 Urine Protein 100 H Urine Glucose (UA) >=500 H Urine Ketones TRACE H Urine Blood SMALL H Urine Nitrite NEGATIVE Ur Leukocyte Esterase NEGATIVE Urine WBC (Auto) 2 Urine RBC (Auto) 6 08/14/18 07:41 WBC 10.2 RBC 5.27 Hgb 14.6 D Hct 45.0 MCV 86 MCH 27.7 MCHC 32.4 RDW 14.9 H Plt Count 176 Seg Neutrophils % 76.7 Lymphocytes % 13.9 Monocytes % 8.3 Eosinophils % 0.7 Basophils % 0.4 Absolute Neutrophils 7.8 Absolute Lymphocytes 1.4 Absolute Monocytes 0.9 Absolute Eosinophils 0.1 Absolute Basophils 0.0 Sodium Potassium Chloride Carbon Dioxide Anion Gap BUN Creatinine Est GFR ( Amer) Est GFR (Non-Af Amer) Glucose Calcium Urine Color Urine Appearance Urine pH Ur Specific Maury Urine Protein Urine Glucose (UA) Urine Ketones Urine Blood Urine Nitrite Ur Leukocyte Esterase Urine WBC (Auto) Urine RBC (Auto) 08/13/18 08/13/18 08/13/18 05:26 05:26 12:30 Creatine Kinase 182 H CK-MB (CK-2) 2.78 Troponin I 0.024 1.130 NT-Pro-B Natriuret Pep 2580 H 08/13/18 08/14/18 18:56 01:01 Creatine Kinase CK-MB (CK-2) Troponin I 6.470 12.100 NT-Pro-B Natriuret Pep Impressions: Chest X-Ray 08/14/18 06:00 IMPRESSION: Near complete resolution of the pulmonary edema pattern. Plan Time Spent: Greater than 30 Minutes
[2018-08-14] MEDS ORDERED: ASPIRIN 81 MG TABLET, ENT COATED PO SCH (10:00)
[2018-08-14] MEDS ORDERED: (PENDING PHARMACY ID) (Empagliflozin [Jardiance] 25 MG) PO SCH (10:00)
[2018-08-14] MEDS ORDERED: ENOXAPARIN SODIUM INJ 120 MG/0.8 ML DISP.SYRIN SUBCUT SCH (10:00)
[2018-08-14] MEDS: VALSARTAN 40 MG TABLET PO SCH (11:07)
[2018-08-14] MEDS: FUROSEMIDE INJ/PF 40 MG/4 ML SDV IV SCH (11:07)
[2018-08-14] MEDS: TICAGRELOR 90 MG TABLET PO SCH (11:08)
[2018-08-14] MEDS: METOPROLOL TARTRATE 50 MG TABLET PO SCH (11:08)
[2018-08-14] MEDS: ISOSORBIDE MONONITRATE 30 MG TAB.ER.24H PO SCH (11:09)
[2018-08-14 12:31] VITALS: BP 122/53
--- NOTE | 2018-08-14 22:38 | EKG REPORT ---
SEVERITY:- ABNORMAL ECG - SINUS RHYTHM LVH WITH SECONDARY REPOLARIZATION ABNORMALITY INFERIOR INFARCT, AGE INDETERMINATE ANTERIOR ST ELEVATION, PROBABLY DUE TO LVH : Confirmed by: Karl Lai 14-Aug-2018 22:37:04
== END 2018-08-14 14:49 | disposition short-term general hospital (02) | DRG 304 ==
LOC: ER 05:19 → EH 06:54 → 3N 10:58
PROVIDERS: ADMIT Emergency Medicine; ATTEND Emergency Medicine
PROC: 5A09357 Assistance with Respiratory Ventilation, Less than 24 Consecutive Hours, Continuous Positive Airway Pressure (ICD-10-PCS; principal; 2018-08-13)
DX: I16.1 Hypertensive emergency (principal); J81.0 Acute pulmonary edema; J96.01 Acute respiratory failure with hypoxia; I50.9 Heart failure, unspecified; E66.01 Morbid (severe) obesity due to excess calories; E11.9 Type 2 diabetes mellitus without complications; I25.10 Atherosclerotic heart disease of native coronary artery without angina pectoris; I11.0 Hypertensive heart disease with heart failure; E78.5 Hyperlipidemia, unspecified; G47.30 Sleep apnea, unspecified; Z95.5 Presence of coronary angioplasty implant and graft; Z79.84 Long term (current) use of oral hypoglycemic drugs; Z79.82 Long term (current) use of aspirin; Z79.02 Long term (current) use of antithrombotics/antiplatelets; Z79.4 Long term (current) use of insulin; Z87.891 Personal history of nicotine dependence; Z82.49 Family history of ischemic heart disease and other diseases of the circulatory system
CPT/HCPCS: 36415; 71045; 80048; 80053; 81001; 82550; 82553; 82962; 83880; 84484; 85025; 93005; 93010; 94660; 96365; 99291; J1644; J1650; J1815; J1940; J3490

== ENCOUNTER 2018-08-19 03:13 | Emergency (ER) | payer MEDICARE, OTHER ==
[2018-08-19] MEDS ORDERED: ASPIRIN 81 MG TABLET, CHEWABLE PO ONE (03:24)
[2018-08-19] MEDS ORDERED: NITROGLYCERIN/D5W 50 MG/250 ML RTUINJ IV PRN (03:24)
[2018-08-19] MEDS ORDERED: FUROSEMIDE INJ/PF 40 MG/4 ML SDV IV ONE (03:24)
--- NOTE | 2018-08-19 03:40 | RADIOLOGY REPORT (SQ) ---
CLINICAL HISTORY: CHF, SOB COMPARISON: August 13, 2018. TECHNIQUE: XR CHEST 1 VIEW 08/19/2018 3:25 AM CDT FINDINGS: Cardiac silhouette is normal in size. There are extensive vague opacities throughout the mid and lower lungs bilaterally. There is no pleural effusion. There is no pneumothorax. There are no acute osseous findings. IMPRESSION: No significant change.
[2018-08-19 03:43] LABS: ABSOLUTE BASOPHILS # (AUTO) 0.1 10^3/uL (0.0-0.2); ABSOLUTE EOSINOPHILS # (AUTO) 0.2 10^3/uL (0.0-0.6); ABSOLUTE LYMPHOCYTES (AUTO) 2.9 10^3/uL (0.5-4.7); ABSOLUTE MONOCYTES (AUTO) 0.8 10^3/uL (0.1-1.4); ABSOLUTE NEUT (AUTO) 6.2 10^3/uL (1.7-8.2); BASOPHILS % (AUTO) 0.7 % (0-2); EOSINOPHILS % (AUTO) 2.2 % (0-6); HEMATOCRIT 49.9 % (37.9-51.0); HEMOGLOBIN 16.1 g/dL (13.5-17.0); LYMPHOCYTES % (AUTO) 28.4 % (13-45); MEAN CORPUSCULAR HEMOGLOBIN 28.5 pg (27.0-33.4); MEAN CORPUSCULAR HGB CONC 32.3 g/dL (32.0-36.0); MEAN CORPUSCULAR VOLUME 88 fl (80-97); MONOCYTES % (AUTO) 7.9 % (3-13); PLATELET COUNT 240 10^3/uL (150-450); RED BLOOD COUNT 5.65 10^6/uL (4.35-5.55); RED CELL DISTRIBUTION WIDTH 15.1 % (11.5-14.0); SEGMENTED NEUTROPHILS % (AUTO) 60.8 % (42-78); TOTAL CELLS COUNTED % (AUTO) 100 %; WHITE BLOOD COUNT 10.2 10^3/uL (4.0-10.5)
[2018-08-19 04:04] LABS: ALANINE AMINOTRANSFERASE 49 U/L (21-72); ALKALINE PHOSPHATASE 102 U/L (38-126); ANION GAP 13 (5-19); ASPARTATE AMINO TRANSFERASE 35 U/L (17-59); BILIRUBIN,DIRECT 0.4 mg/dL (0.0-0.4); BILIRUBIN,TOTAL 0.7 mg/dL (0.2-1.3); BLOOD UREA NITROGEN 23 mg/dL (7-20); CARBON DIOXIDE 29 mmol/L (22-30); CHLORIDE 102 mmol/L (98-107); CREATINE KINASE 127 U/L (55-170); GLUCOSE 289 mg/dL (75-110); POTASSIUM 4.1 mmol/L (3.6-5.0); SODIUM 143.6 mmol/L (137-145); TOTAL PROTEIN 7.3 g/dL (6.3-8.2)
[2018-08-19 04:18] LABS: CREATINE KINASE MB 2.91 ng/mL (<4.55)
[2018-08-19 04:20] LABS: TROPONIN I 2.54 ng/mL
[2018-08-19 05:58] VITALS: BP 129/52
--- NOTE | 2018-08-19 06:21 | ER Document Report ---
Entered by AMAURY HORTON SCRIBE 08/19/18 0414 Acting as scribe for:OSMAN FOREMAN DO ED Respiratory Problem - General Stated Complaint: RESPIRATORY DISTRESS Primary Care Provider: RAJENDRA ISIDRO MD [Primary Care Provider] - Follow up as needed Mode of Arrival: Ambulatory Information source: Patient Notes: Patient is a 71-year-old male with a history of CHF, hypertension type 2 shawn betes and a history of MIs and a previous intubation presents to the emergency department via EMS due to difficulty breathing. Patient states he woke up in the middle of the night, unable to breathe and called EMS. Denies any chest pain. EMS found the patient to be markedly hypoxic and placed the patient on BiPAP. Patient's primary is Dr. Luevano. He states his sterile supply technician is Dr. Patrick in [place]. Patient has been recently seen in this facility and then apparently went to [facility] where he was cathed and discharged within the past 2 days. TRAVEL OUTSIDE OF THE [place] IN LAST 30 DAYS: No - Related Data Allergies/Adverse Reactions: No Known Allergies Allergy (Verified 01/17/18 11:03) Past Medical History - General Information source: Patient, Emergency Med Personnel, [facility] Records - Social History Smoking Status: Former Smoker Cigarette use (# per day): No Chew tobacco use (# tins/day): No Smoking Education Provided: No Frequency of alcohol use: None Family History: CAD - Positive but not premature - Past Medical History Cardiac Medical History: Reports: Hx Congestive Heart Failure, Hx Coronary Artery Disease, Hx Hypercholesterolemia, Hx Hypertension Pulmonary Medical History: Reports: Hx Sleep Apnea Endocrine Medical History: Reports: Hx Diabetes Mellitus Type 2 Past Surgical History: Reports: Hx Cardiac Catheterization Review of Systems - Review of Systems Constitutional: No symptoms reported EENT: No symptoms reported Cardiovascular: See HPI, Orthopnea. denies: Chest pain Respiratory: See HPI Gastrointestinal: No symptoms reported Genitourinary: No symptoms reported Male Genitourinary: No symptoms reported Musculoskeletal: No symptoms reported Skin: No symptoms reported Hematologic/Lymphatic: No symptoms reported Neurological/Psychological: No symptoms reported -: Yes All other systems reviewed and negative Physical Exam - Vital signs Vitals: Resp Pulse Ox 35 H 100 08/19/18 03:15 08/19/18 03:15 Interpretation: Hypertensive, Tachycardic, Tachypneic - Notes Notes: GENERAL: Alert, on BiPAP, able to answer questions with 1-2 words. Severe res piratory distress. HEAD: Normocephalic, atraumatic. EYES: Pupils equal, round, and reactive to light. Extraocular movements intact. ENT: Oral mucosa moist, tongue midline. NECK: Full range of motion. Supple. Trachea midline. LUNGS: Severe respiratory distress. Tripoding, head bobbing. On BiPAP. Diffuse inspiratory rales, no wheezing. HEART: Tachycardic rate and rhythm. 1 out of 6 systolic murmur, no gallops or rubs. ABDOMEN: Soft, non-tender. Non-distended. Bowel sounds present in all 4 quadra nts. No guarding, rigidity, or rebound. EXTREMITIES: Moves all 4 extremities spontaneously. 2+ pitting edema to the bilateral lower extremities, IO in left proximal tibia. Radial and dorsalis pedis pulses 2/4 bilaterally. No cyanosis. NEUROLOGICAL: Alert and oriented x3. Normal speech. PSYCH: Normal affect, normal mood. SKIN: Warm, dry. Course - Re-evaluation Re-evalutation: 08/19/18 04:55 Dr. Gil accepts patient for transfer to [facility]. 08/19/18 06:02 Patient arrived on CPAP, acutely short of breath, immediately transitioned to BiPAP, presentation very consistent with congestive heart failure flash pulmonary edema, patient started on nitroglycerin drip at 100 mcg/minute. Patient fairly rapid improvement on this, no longer tripoding, no longer has any head-bobbing, able to speak with me for more than 1-2 words at a time. CBC unremarkable, CMP shows elevated BUN at 23, creatinine normal, glucose elevated 289, troponin positive at 2.5, proBNP elevated at 3690. Chest x-ray as interpreted by me is consistent with pulmonary edema however radiology calls them nonspecific patchy areas. Initial EKG showed concerning ST segment elevations but did not meet STEMI criteria, his EKGs were serially repeated for other times, they consistently improved and there is no evidence of STEMI. At this point I did call [facility] where the patient apparently had a cardiac catheterization 2 days ago and spoke with Dr. Gil who accepted the patient to his service. Did tell me that the patient actually had a troponin of 18 2 days ago so the troponin of 2.5 is significantly improved. Agrees with transferring anyway for flash pulmonary edema and acute congestive heart failure. Patient is agreeable to this as well. Has not had any chest pain this entire time. - Vital Signs Vital signs: Temp Pulse Resp BP Pulse Ox 97.7 F 27 H 129/52 H 100 08/19/18 04:46 08/19/18 05:56 08/19/18 05:56 08/19/18 05:56 - Laboratory Result Diagrams: 08/19/18 03:25 08/19/18 03:25 Laboratory results interpreted by me: 08/19/18 08/19/18 08/19/18 03:25 03:25 03:25 RBC 5.65 H RDW 15.1 H BUN 23 H Glucose 289 H NT-Pro-B Natriuret Pep 3690 H - EKG Interpretation by Me Additional EKG results interpreted by me: 08/19/18 06:03 Initial EKG at 325 shows sinus rhythm at a rate of 73, incomplete left bundle branch block, ST segment elevations in lead III which are 3 to 4 mm, aVF has some baseline artifact but not quite 1 mm worth of elevation, there is ST segment depressions in 1 and aVL which are new, T wave inversions which are old per my interpretation. EKG was repeated at 336 and shows sinus rhythm at a rate of 73, decreasing but persistent ST segment elevations in lead III, improving ST segment elevation in aVF, persistent ST segment depressions and T wave inversions in leads I and aVL, continuing left bundle branch block per my interpretation. EKG #3 was performed at 347, he continues to improve, sinus rhythm at a rate of 73, [address] segment elevations in lead III, half a millimeter ST segment elevation in aVF, T wave inversions are persistent in 1 and aVL per my interpretation. EKG #4 was performed at 415, sinus rhythm at a rate of 72, incomplete left bundle branch block, T wave inversions in 1 and aVL, minimal ST segment elevations of approximately 1 mm in lead III, no further ST segment elevation in aVF, significant baseline artifact per my interpretation. Final EKG #5 was performed at 430, sinus rhythm at a rate of 73, left axis deviation, continuing interventricular conduction delay, T wave inversions persist in 1 and aVL but are quite similar to old EKG, ST segment elevation of 1 mm remains in lead III, all ST segment elevations in aVF have resolved per my interpretation. Critical Care Note - Critical Care Note Total time excluding time spent on procedures (mins): 65 Discharge - Discharge Clinical Impression: Flash pulmonary edema Respiratory failure with hypoxia Qualifiers: Chronicity: acute Qualified Code(s): J96.01 - Acute respiratory failure with hypoxia Condition: Critical Disposition: [facility] Referrals: RAJENDRA ISIDRO MD [Primary Care Provider] - Follow up as needed I personally performed the services described in the documentation, reviewed and edited the documentation which was dictated to the scribe in my presence, and it accurately records my words and actions.
--- NOTE | 2018-08-19 22:34 | EKG REPORT ---
SEVERITY:- ABNORMAL ECG - SINUS RHYTHM REPOL ABNRM SUGGESTS ISCHEMIA, LATERAL LEADS BORDERLINE ST ELEVATION, INFERIOR LEADS : Confirmed by: Shagufta Limon MD 19-Aug-2018 22:34:00
--- NOTE | 2018-08-19 22:34 | EKG REPORT ---
SEVERITY:- ABNORMAL ECG - SINUS RHYTHM INCOMPLETE LEFT BUNDLE BRANCH BLOCK : Confirmed by: Shagufta Limon MD 19-Aug-2018 22:34:05
--- NOTE | 2018-08-19 22:34 | EKG REPORT ---
SEVERITY:- ABNORMAL ECG - SINUS RHYTHM INCOMPLETE LEFT BUNDLE BRANCH BLOCK ST DEPRESSION, CONSIDER ISCHEMIA, LAT LEADS : Confirmed by: Shagufta Limon MD 19-Aug-2018 22:34:10
--- NOTE | 2018-08-19 22:35 | EKG REPORT ---
SEVERITY:- ABNORMAL ECG - SINUS RHYTHM INCOMPLETE LEFT BUNDLE BRANCH BLOCK ST DEPRESSION, CONSIDER ISCHEMIA, LAT LEADS : Confirmed by: Shagufta Limon MD 19-Aug-2018 22:34:28
--- NOTE | 2018-08-19 22:35 | EKG REPORT ---
SEVERITY:- ABNORMAL ECG - SINUS RHYTHM INCOMPLETE LEFT BUNDLE BRANCH BLOCK INFERIOR INJURY, PROBABLE EARLY ACUTE INFARCT : Confirmed by: Shagufta Limon MD 19-Aug-2018 22:34:34
== END 2018-08-19 07:06 | disposition short-term general hospital (02) ==
LOC: ER 03:13
DX: J96.01 Acute respiratory failure with hypoxia (principal); J81.1 Chronic pulmonary edema; I50.9 Heart failure, unspecified; I25.10 Atherosclerotic heart disease of native coronary artery without angina pectoris; E78.00 Pure hypercholesterolemia, unspecified; I11.0 Hypertensive heart disease with heart failure; E11.9 Type 2 diabetes mellitus without complications
CPT/HCPCS: 93005; 99291; 96375; 96365; 36415; 82553; 82550; 85025; 80053; 84484; 83880; 71045; 93010; 94660; A9270; J1940; J3490